=== PATIENT | female | born 1960 | race Caucasian/White ===

== ENCOUNTER 2017-07-09 21:45 | Inpatient (IN) | payer MEDICAID ==
[~2017-07-09] VITALS: Ht 154.9 cm; Wt 97.1 kg
[~2017-07-09 21:45] MED LIST: ABILIFY10 MG PO; AMARYL4 MG PO; ATHLETE'S FOOT60 GM TP; ATORVASTATIN CA40 MG PO; AZITHROMYCIN 2250 MG PO; DIFLUCAN150 M1 PO; IBUPROFEN 800800 M1 PO; IMITREX100 MG PO; INDERAL LA 80 M80 M1 PO; INVOKANA100 MG PO; IRON325 PO; LATUDA60 MG PO; METFORMIN HCL500 MG PO; NORCO 5-325 TA1 EACH PO; PAXIL10 MG PO; PHENERGAN 25 MG25 M1 PO; PREDNISONE 10 M10 MG PO; PROAIR HFA8.5 GM IH; PROZAC 20 MG20 MG PO; TOPAMAX 100 MG100 MG PO; TRAMADOL 50 MG50 MG PO; XANAX1 MG PO
[2017-07-09 21:53] VITALS: BP 132/59
[2017-07-09 22:12] LABS: HEMOGLOBIN 12.1 gm/dL (12.0-15.0); MPV 7.6 fl. (7.2-11.1); NUCLEATED RBCS 0 /100WBC; WBC 9.4 thou/uL (4.0-11.0)
[2017-07-09 22:20] LABS: HEMATOCRIT 35.7 % (37.0-47.0); MCH 31.1 pg (26.0-34.0); MCHC 33.9 g/dL (28.0-37.0); MCV 91.8 fL (80.0-100.0); PLATELET COUNT* 214 thou/uL (150-400); RBC 3.89 mil/uL (4.20-5.00); RDW-CV 13.4 % (10.5-14.5)
[2017-07-09 22:35] LABS: CALCIUM 8.6 mg/dL (8.5-10.1); CREATININE 1.1 mg/dL (0.6-1.3); POTASSIUM 3.7 mmol/L (3.5-5.1)
[2017-07-09 22:40] LABS: TOTAL BILIRUBIN 0.6 mg/dL (<0.1-1.0); TOTAL PROTEIN 7.4 g/dL (6.4-8.2)
[2017-07-09 22:46] LABS: ABSOLUTE EOSINOPHILS 0.1 thou/uL (0.0-0.7); ABSOLUTE LYMPHOCYTES 0.6 thou/uL (0.8-5.3); ABSOLUTE MONOCYTES 0.9 thou/uL (0.0-1.2); ABSOLUTE NEUTROPHILS 7.8 thou/uL (1.6-8.1); PLATELET ESTIMATE ADEQUATE
[2017-07-10 00:15] LABS: URINE BILIRUBIN NEGATIVE (Negative); URINE BLOOD TRACE (Negative); URINE CLARITY CLEAR; URINE COLOR STRAW; URINE GLUCOSE-RANDOM 3+ (Negative); URINE KETONES 1+ (Negative); URINE LEUKOCYTES-REFLEX TRACE (Negative); URINE NITRITE-REFLEX NEGATIVE (Negative); URINE PROTEIN NEGATIVE (Negative); URINE SPECIFIC GRAVITY <= 1.005 (1.005-1.030); URINE UROBILINOGEN 0.2 E.U./dl (0.2-1.0)
[2017-07-10 01:20] LABS: CASTS None Seen /LPF (None Seen); SQUAMOUS >10 Many /LPF (0-3)
[2017-07-10 01:21] LABS: CRYSTALS None Seen /LPF (None Seen); URINE RBC 0-2 Rare /HPF (0-2); URINE WBC-REFLEX 6-15 Few /HPF (0-5)
[2017-07-10 02:47] VITALS: BP 117/66
[2017-07-10 04:33] VITALS: BP 144/63
[2017-07-10 06:12] VITALS: BP 134/90
[2017-07-10 06:35] VITALS: BP 144/67
--- NOTE | 2017-07-10 08:12 | NUR ---
PATIENT ARRIVED FROM ER ALERT AND ORIENTED. V/S DONE AND TEMPATURE WAS ELEVATED. PAGED AND NOTIFIED AND NEW ORDERS NOTED.
[2017-07-10 16:15] VITALS: BP 125/81
--- NOTE | 2017-07-10 17:09 | NUR ---
ASSUMED CARE OF PATIENT AFTER MORNING REPORT. ALERT AND ORIENTED X4. ASSESSMENT COMPLETED AND CHARTED. VSS ON ROOM AIR. PATIENT APPEARED TO BE HAVING INCREASED WORK OF BRETHING THIS AM, 2 LITERS 02 WAS APPLIED. PATIENT ALSO HAD MARTIN FACE AND PUFFINESS AROUND THE EYES. REPORTED THESE FINDINGS TO THE DOCTOR. PRN BREATHING TREATMENTS WERE ORDERED AND PATIENT IS NOW ON ROOM AIR. BENADRYL WAS ORDERED AND GIVEN, REDNESS N HER FACE HAS SLIGHTLY IMPROVED. ANTIBIOTICS HAVE BEEN INFUSED ORDERED. PAIN HAS BEEN MANAGED WITH PAIN MEDICATION. PATIENT WAS FEBRILE THIS AM, ADMINISTERED TYLENOL AND FEVER WAS REDUCED. HOURLY ROUNDS HAVE BEEN MAINTAINED. CALL LIGHT IS WITHIN REACH. NURSING WILL CONTINUE TO MONITOR.
[2017-07-10 19:45] VITALS: BP 139/68
[2017-07-11] VITALS: BP 129/67
[2017-07-11 04:07] LABS: ABSOLUTE EOSINOPHILS 0.1 thou/uL (0.0-0.7); ABSOLUTE LYMPHOCYTES 0.7 thou/uL (0.8-5.3); ABSOLUTE MONOCYTES 0.7 thou/uL (0.0-1.2); BASOPHILS 0.5 %; EOSINOPHILS 1.2 %; HEMOGLOBIN 11.7 gm/dL (12.0-15.0); LYMPHOCYTES 10.3 %; MCH 30.5 pg (26.0-34.0); MCHC 33.3 g/dL (28.0-37.0); MCV 91.5 fL (80.0-100.0); MPV 7.4 fl. (7.2-11.1); NUCLEATED RBCS 0 /100WBC; PLATELET COUNT* 219 thou/uL (150-400); RBC 3.83 mil/uL (4.20-5.00); RDW-CV 13.4 % (10.5-14.5); WBC 6.5 thou/uL (4.0-11.0)
[2017-07-11 04:30] LABS: CALCIUM 8.3 mg/dL (8.5-10.1); CREATININE 0.7 mg/dL (0.6-1.3); POTASSIUM 3.8 mmol/L (3.5-5.1)
[2017-07-11 04:34] VITALS: BP 151/66
[2017-07-11 06:00] VITALS: BP 145/80
[2017-07-11 16:00] VITALS: BP 140/76
--- NOTE | 2017-07-11 17:01 | NUR ---
ALERT AND ORIENTED X4. UP AD ANSON IN ROOM. IV IS PATENT AND INFUSING. PAIN BEING MANAGED WITH PO PAIN MEDICATION. DENIES NAUSEA. TOLERATING DIET. VSS ON ROOM AIR. HOURLY ROUNDS HAVE BEEN MAINTAINED THORUGHOUT SHIFT. CALL LIGHT IS WITHIN REACH. NURSING WILL CONTINUE TO MONITOR.
[2017-07-11 20:00] VITALS: BP 179/94
[2017-07-12 05:08] LABS: ABSOLUTE LYMPHOCYTES 0.8 thou/uL (0.8-5.3); ABSOLUTE MONOCYTES 0.2 thou/uL (0.0-1.2); ABSOLUTE NEUTROPHILS 3.7 thou/uL (1.6-8.1); BASOPHILS 0.5 %; HEMATOCRIT 35.5 % (37.0-47.0); HEMOGLOBIN 11.8 gm/dL (12.0-15.0); LYMPHOCYTES 16.5 %; MCH 30.7 pg (26.0-34.0); MCHC 33.1 g/dL (28.0-37.0); MCV 92.6 fL (80.0-100.0); MPV 7.4 fl. (7.2-11.1); NUCLEATED RBCS 0 /100WBC; PLATELET COUNT* 260 thou/uL (150-400); RBC 3.83 mil/uL (4.20-5.00); RDW-CV 13.3 % (10.5-14.5); WBC 4.8 thou/uL (4.0-11.0)
[2017-07-12 05:11] LABS: CALCIUM 9.2 mg/dL (8.5-10.1); CREATININE 0.7 mg/dL (0.6-1.3)
--- NOTE | 2017-07-12 07:57 | NUR ---
PT ALERT AND ORIENTED X4, PT IN PLEASANT MOOD, UP AD ANSON, IV FLUIDS INFUSING, NO COMPLAINTS/CONCERNS EXPRESSED THIS SHIFT
--- NOTE | 2017-07-12 15:20 | NUR ---
PT.SITTING ON SIDE OF BED. ALERT AND ORIENTED. STATED SHE LIVES WITH HER EX . HER SON'S THAT ARE 21 AND 25 HELP THEM ALOT. SHE DOES NOT USE DME AND HAS NOT HAD HH. SHE WAS NOT INTERESTED IN ANY COMMUNITY RESOURCES. SHE SAID SHE CAN AFFORD HER MEDICATIONS THROUGH HER MEDICAID. SHE IS UNEMPLOYED. SHE SAID SHE IS INDEPENDENT WITH ALL THINGS.
--- NOTE | 2017-07-12 17:04 | NUR ---
ALERT AND ORIENTED X4. UP STAND BY ASSIST TO THE BATHROOM. IV IS PATENT AND INFUSING. PAIN BEING MANAGED WITH PO PAIN MEDICATION. DENIES NAUSEA. PATIENT HAD AN EPISODE OF DIZZINESS THIS EVENING AND FELL BACKWARDS ONTO HER BED. PROVIDER NOTIFED. NO COMPLAINTS OF DIZZINESS SINCE. BLOOD PRESSURE HAS BEEN HIGH THROUGHOUT SHIFT. PROVIDER NOTIFED AND ORDERS RECIEVED. AFEBRILE. ROOM AIR. HOURLY ROUNDS HAVE BEEN MAINTAINED THROUGHOUT SHIFT. CALL LIGHT IS WITHIN REACH. NURSING WILL CONTINUE TO MONITOR.
[2017-07-12 17:06] VITALS: BP 183/87
[2017-07-12 20:00] VITALS: BP 150/79
[2017-07-13 01:17] VITALS: BP 145/67
--- NOTE | 2017-07-13 04:25 | NUR ---
PATIENT ALERT AND ORIENTED X4. MEDICATED FOR PAIN X1 WITH GOOD EFFECT REPORTED. UP AD ANSON. ABX INFUSED ORDERED. TOLERATING DIET. DENIES NAUSEA THIS AM. VITALS STABLE. CONTINUE TO MONITOR.
[2017-07-13 05:09] LABS: ABSOLUTE LYMPHOCYTES 1.7 thou/uL (0.8-5.3); ABSOLUTE MONOCYTES 0.6 thou/uL (0.0-1.2); ABSOLUTE NEUTROPHILS 5.8 thou/uL (1.6-8.1); BASOPHILS 0.4 %; HEMATOCRIT 34.3 % (37.0-47.0); HEMOGLOBIN 11.4 gm/dL (12.0-15.0); LYMPHOCYTES 20.5 %; MCH 30.4 pg (26.0-34.0); MCHC 33.2 g/dL (28.0-37.0); MCV 91.5 fL (80.0-100.0); MONOCYTES 7.8 %; MPV 7.6 fl. (7.2-11.1); NUCLEATED RBCS 0 /100WBC; PLATELET COUNT* 313 thou/uL (150-400); POLYS 71.3 %; RBC 3.75 mil/uL (4.20-5.00); RDW-CV 13.4 % (10.5-14.5); WBC 8.2 thou/uL (4.0-11.0)
[2017-07-13 05:11] LABS: CALCIUM 9.1 mg/dL (8.5-10.1); CREATININE 0.7 mg/dL (0.6-1.3); POTASSIUM 4.2 mmol/L (3.5-5.1)
[2017-07-13 07:30] VITALS: BP 186/94
[2017-07-13 08:00] VITALS: BP 186/94
[2017-07-13 12:43] VITALS: BP 186/94
[2017-07-13] MEDS ORDERED: CIPRO500 MG PO (12:49)
[2017-07-13] MEDS ORDERED: NORCO 5-325 TA1 EACH PO (12:52)
[2017-07-13] MEDS ORDERED: PREDNISONE 20 M20 MG PO (13:07)
--- NOTE | 2017-07-13 13:30 | NUR ---
PATIENT LEFT UNIT BY WHEELCHAIR WITH NURSING STAFF. IV DC'D. EDUCATED PATIENT AND SONS ON DISCHARGE INSTRUCTIONS AND NEW MED SCRIPTS. PATIENT AND SONS VERBALIZED UNDERSTANDING. ALL BELONGINGS LEFT WITH PATIENTS.
[2017-07-13 13:32] VITALS: BP 186/94
--- NOTE | 2017-07-13 15:59 | NUR ---
I agree with student nurse, Miryam Lamar's, assessment and VS documentation
[2018-04-02] MEDS ORDERED: LATUDA60 MG PO (05:59)
== END 2017-07-13 13:33 | disposition home or self-care (01) | DRG 872 ==
LOC: M.ERS 21:45 → M.ORTHSURG 07-10 00:34 → M.TBA-ER 07-10 00:34 → M.ORTHSURG 07-10 06:33
PROVIDERS: Internal Medicine; Physician Assistant; ADMIT Family Medicine
DX: A41.9 Sepsis, unspecified organism (principal); N12 Tubulo-interstitial nephritis, not specified as acute or chronic; E87.1 Hypo-osmolality and hyponatremia; E24.9 Cushing's syndrome, unspecified; J45.909 Unspecified asthma, uncomplicated; F31.9 Bipolar disorder, unspecified; F17.210 Nicotine dependence, cigarettes, uncomplicated; N18.3 Chronic kidney disease, stage 3 (moderate); I12.9 Hypertensive chronic kidney disease with stage 1 through stage 4 chronic kidney disease, or unspecified chronic kidney disease; E11.22 Type 2 diabetes mellitus with diabetic chronic kidney disease; E78.5 Hyperlipidemia, unspecified; Z90.710 Acquired absence of both cervix and uterus; Z90.49 Acquired absence of other specified parts of digestive tract

== ENCOUNTER 2017-07-23 17:26 | Emergency (ER) | payer MEDICAID ==
[~2017-07-23] VITALS: Ht 154.9 cm; Wt 99.3 kg
[~2017-07-23 17:26] MED LIST changes: +CIPRO500 MG PO; +PREDNISONE 20 M20 MG PO
[2017-07-23 17:49] LABS: URINE BILIRUBIN NEGATIVE (Negative); URINE BLOOD NEGATIVE (Negative); URINE CLARITY CLEAR; URINE COLOR STRAW; URINE GLUCOSE-RANDOM 3+ (Negative); URINE KETONES NEGATIVE (Negative); URINE LEUKOCYTES-REFLEX TRACE (Negative); URINE NITRITE-REFLEX NEGATIVE (Negative); URINE PROTEIN NEGATIVE (Negative); URINE UROBILINOGEN 0.2 E.U./dl (0.2-1.0)
[2017-07-23 18:13] LABS: ABSOLUTE BASOPHILS 0.1 thou/uL (0.0-0.2); ABSOLUTE LYMPHOCYTES 1.7 thou/uL (0.8-5.3); ABSOLUTE MONOCYTES 0.6 thou/uL (0.0-1.2); ABSOLUTE NEUTROPHILS 7.1 thou/uL (1.6-8.1); BASOPHILS 1.2 %; EOSINOPHILS 0.5 %; HEMATOCRIT 39.3 % (37.0-47.0); HEMOGLOBIN 12.9 gm/dL (12.0-15.0); LYMPHOCYTES 18.1 %; MCH 30.8 pg (26.0-34.0); MCHC 32.9 g/dL (28.0-37.0); MCV 93.5 fL (80.0-100.0); MONOCYTES 6.4 %; MPV 7.4 fl. (7.2-11.1); NUCLEATED RBCS 0 /100WBC; PLATELET COUNT* 295 thou/uL (150-400); POLYS 73.8 %; RDW-CV 14.1 % (10.5-14.5); WBC 9.6 thou/uL (4.0-11.0)
[2017-07-23 18:23] LABS: SQUAMOUS >10 Many /LPF (0-3)
[2017-07-23 18:23] LABS: CALCIUM 8.3 mg/dL (8.5-10.1); CREATININE 0.9 mg/dL (0.6-1.3)
[2017-07-23 18:24] LABS: BACTERIA-REFLEX 1-9 Few /HPF (None Seen); CASTS None Seen /LPF (None Seen); CRYSTALS None Seen /LPF (None Seen); URINE RBC 0-2 Rare /HPF (0-2); URINE WBC-REFLEX 0-5 Rare /HPF (0-5)
[2017-07-23 18:25] LABS: YEAST-REFLEX Present (None Seen)
[2017-07-23 18:28] LABS: ALBUMIN 3.3 g/dL (3.4-5.0); TOTAL BILIRUBIN 0.3 mg/dL (<0.1-1.0); TOTAL PROTEIN 7.1 g/dL (6.4-8.2)
[2017-07-23] MEDS ORDERED: DIFLUCAN150 MG PO (20:13)
[2017-07-23 20:42] VITALS: BP 131/65
[2017-07-23] MEDS ORDERED: NORCO 5-325 TA1 EACH PO (20:48)
[2018-04-02] MEDS ORDERED: LATUDA60 MG PO (05:59)
== END 2017-07-23 20:43 | disposition home or self-care (01) ==
LOC: M.ERS 17:26
PROVIDERS: Nurse Practitioner Family
DX: B37.9 Candidiasis, unspecified (principal); R10.84 Generalized abdominal pain; M51.35 Other intervertebral disc degeneration, thoracolumbar region; I10 Essential (primary) hypertension; E11.9 Type 2 diabetes mellitus without complications; F17.200 Nicotine dependence, unspecified, uncomplicated; Z90.710 Acquired absence of both cervix and uterus; Z90.49 Acquired absence of other specified parts of digestive tract

== ENCOUNTER 2017-07-31 19:30 | Inpatient (IN) | payer MEDICAID ==
[~2017-07-31] VITALS: Ht 154.9 cm; Wt 97.1 kg
--- NOTE | ~2017-07-31 | PROC ---
[address] [address] PROCEDURE REPORT Name: ARIEL MORAN Room: [address] IN ..#: [id number] Admission: 07/31/17 Attend Phys: Fran Vargas MD Discharge: Date of : 62 Report #: [id number] THIS REPORT FOR: //name// For GI report, please see the Provation report in Perceptive 7 content. By: 0643Medical Records Staff [employer] /AMILCAR
[~2017-07-31 19:30] MED LIST changes: +DIFLUCAN150 MG PO
[2017-07-31 19:32] VITALS: BP 188/82
[2017-07-31 19:50] LABS: ABSOLUTE BASOPHILS 0.1 thou/uL (0.0-0.2); ABSOLUTE EOSINOPHILS 0.1 thou/uL (0.0-0.7); ABSOLUTE LYMPHOCYTES 1.8 thou/uL (0.8-5.3); ABSOLUTE MONOCYTES 0.6 thou/uL (0.0-1.2); ABSOLUTE NEUTROPHILS 6.5 thou/uL (1.6-8.1); BASOPHILS 1.4 %; EOSINOPHILS 0.7 %; HEMATOCRIT 41.3 % (37.0-47.0); HEMOGLOBIN 13.6 gm/dL (12.0-15.0); LYMPHOCYTES 19.8 %; MCH 30.9 pg (26.0-34.0); MCHC 32.9 g/dL (28.0-37.0); MCV 93.8 fL (80.0-100.0); MONOCYTES 6.4 %; MPV 7.1 fl. (7.2-11.1); NUCLEATED RBCS 0 /100WBC; PLATELET COUNT* 246 thou/uL (150-400); POLYS 71.7 %; RDW-CV 14.4 % (10.5-14.5)
[2017-07-31 20:01] LABS: ANION GAP 10 mmol/L (7-16); BUN 17 mg/dL (7-18); CALCIUM 9.1 mg/dL (8.5-10.1); CHLORIDE 101 mmol/L (98-107); CO2 28 mmol/L (21-32); CREATININE 1.2 mg/dL (0.6-1.3); GLUCOSE 251 mg/dL (70-99); POTASSIUM 4.7 mmol/L (3.5-5.1); SODIUM 139 mmol/L (136-145)
[2017-07-31 20:04] LABS: URINE BILIRUBIN NEGATIVE (Negative); URINE BLOOD NEGATIVE (Negative); URINE CLARITY CLEAR; URINE COLOR YELLOW; URINE GLUCOSE-RANDOM 3+ (Negative); URINE KETONES NEGATIVE (Negative); URINE LEUKOCYTES-REFLEX NEGATIVE (Negative); URINE NITRITE-REFLEX NEGATIVE (Negative); URINE PROTEIN NEGATIVE (Negative); URINE SPECIFIC GRAVITY <= 1.005 (1.005-1.030); URINE UROBILINOGEN 0.2 E.U./dl (0.2-1.0)
[2017-07-31 20:12] LABS: ALBUMIN 3.8 g/dL (3.4-5.0); ALKALINE PHOSPHATASE 222 U/L (46-116); NT-PRO BRAIN NAT PEPTIDE 79 pg/mL (<300); SGOT 51 U/L (15-37); SGPT 80 U/L (30-65); TOTAL BILIRUBIN 0.3 mg/dL (<0.1-1.0); TOTAL PROTEIN 7.8 g/dL (6.4-8.2); TROPONIN-I LEVEL <0.06 ng/mL (<0.06)
[2017-07-31 20:29] LABS: INR 1.1; PROTIME 10.5 Seconds (9.20-11.50)
[2017-07-31 22:31] VITALS: BP 109/56
[2017-07-31 23:45] VITALS: BP 125/56
--- NOTE | 2017-08-01 02:25 | NUR ---
PATIENT ADMITTED TO ROOM 106 AT APPROXIMATELY 2250. PATIENT IS ALERT AND ORIENTED X 4. VSS ON RA. PAIN MEDICATION GIVEN PRIOR TO COMING FROM ED. PATIENT ORIENTED TO ROOM AND POLICIES. FALL EDUCATION GIVEN AND FALL AGREEMENT SIGNED. PATIENT VERBALIZED UNDERSTANDING. IV FLUIDS STARTED. ADMISSION ROUTINES IN PROGRESS. ASSESSMENT CHARTED. PATIENT INSTRUCTED TO USE CALL LIGHT WHEN NEEDING ASSISTANCE. HOURLY ROUNDS TO BE MADE. WILL CONTINUE WITH PLAN OF CARE AND NURSING TO MONITOR.
--- NOTE | 2017-08-01 08:00 | NUR ---
PATIENT HAS BEEN UP MOST OF THE NIGHT. C/O EPIGASTRIC AREA PAIN. MEDICATIONS GIVEN ORDERED AND CHARTED. VSS ON RA. PATIENT REQUESTS MORPHINE EVERY 2 HRS. PATIENT HAS REMAINED NPO SINCE BEING ADMITTED. GI HAS BEEN CONSULTED. IV IN LEFT AC-NS @ 130ML/HR. PATIENT INSTRUCTED TO USE CALL LIGHT WHEN NEEDING ASSISTANCE. HOURLY ROUNDS MADE. WILL CONTINUE WITH PLAN OF CARE AND NURSING TO MONITOR.
[2017-08-01 08:10] VITALS: BP 124/73
--- NOTE | 2017-08-01 13:00 | NUR ---
PT.KNOWN FROM PREVIOUS ADMISSION. SHE LIVES WITH HER EX AND ADULT SONS. SHE IS INDEPENDENT AND NO HX OF DME OR HH. SHE WILL NOT HAVE ANY DISCHARGE NEEDS.
[2017-08-01 16:00] VITALS: BP 129/66
--- NOTE | 2017-08-01 16:17 | NUR ---
PATIENT REMAINS ALERT AND ORIENTED. EPIGASTIC PAIN CONTROLLED WITH MORPHINE/LIDODERM PATCH. IVF INFUSING AT 130ML/HR. PATIENT AMBULATES STANDBY ASSIST. CLEAR LIQUIDS STARTED. TOLERATING. STRESS TEST ORDERED TODAY. PATIENT CURRENTLY IN NUC MED FOR FIRST PART OF STUDY TODAY. PATIENT INSTRUCTED TO NOT CONSUME ANY CAFFEINE UNTIL FINAL PORTION OF STRESS TEST IS COMPLETED TOMORROW. WILL CONTINUE TO MONITOR.
--- NOTE | 2017-08-01 17:02 | EKG ---
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: TDM : 1960 Requested By: Gwendolyn Rojas Order Number: [id number] MD: Shar Conley Measurements Intervals [place] Rate: 82 P: 41 WA: 166 QRS: 63 QRSD: 80 T: -8 QT: 368 QTc: 430 Interpretive Statements Sinus rhythm Anteroseptal infarct, old Borderline T abnormalities, inferior leads Compared to ECG 06/13/2013 14:41:25 Myocardial infarct finding now present T-wave abnormality still present Electronically Signed On 08-01-2017 17:02:38 [employer]GR[employer] DIRECTOR by Shar Conley [email or web address] <ELECTRONICALLY SIGNED> By: Shar Conley MD, [facility] 08/01/17 1702 33 33 Shar Conley MD, [facility] /EPI
[2017-08-02 03:23] VITALS: BP 148/70
[2017-08-02 04:56] LABS: DIRECT BILIRUBIN 0.1 mg/dL (<0.1-0.3); TOTAL BILIRUBIN 0.4 mg/dL (<0.1-1.0); TOTAL PROTEIN 6.3 g/dL (6.4-8.2)
--- NOTE | 2017-08-02 06:48 | NUR ---
PATIENT HAS SLEPT WELL THROUGHOUT MOST OF THE NIGHT WITHOUT ANY ISSUES. PATIENT DID HAVE SMALL AMOUNT OF NAUSEA WITH EMESIS AT THE BEGINNING OF THE NIGHT. NAUSEA MEDICATION GIVEN AND CHARTED. PAIN HAS BEEN CONTROLLED THROUGHOUT THE NIGHT WITH IV PAIN MEDICATION. PATIENT IS UP WITH ASSIST X 1 TO THE BATHROOM. PATIENT HAS REMAINED NPO SINCE MIDNIGHT. VSS ON RA. IV IN LEFT AC-NS @ 130ML/HR. PATIENT INSTRUCTED TO USE CALL LIGHT WHEN NEEDING ASSISTANCE. HOURLY ROUNDS MADE. WILL CONTINUE WITH PLAN OF CARE AND NURSING TO MONITOR.
--- NOTE | 2017-08-02 06:53 | NUR ---
PATIENT HAS SLEPT WELL THROUGHOUT THE NIGHT WITHOUT ANY ISSUES. PAIN WELL CONTROLLED WITH ORAL PAIN MEDICATIONS. VSS ON RA. PATIENT VOIDING ADEQUATELY. PATIENT IS UP AD-ANSON WITH WALKER AND STEADY. PATIENT INSTRUCTED TO USE CALL LIGHT WHEN NEEDING ASSISTANCE. HOURLY ROUNDS MADE. WILL CONTINUE WITH PLAN OF CARE AND NURSING TO MONITOR.
[2017-08-02 08:00] VITALS: BP 118/64
[2017-08-02 10:10] LABS: HEPATITIS B SURFACE AG Negative (Negative)
[2017-08-02] MEDS ORDERED: NORCO 5-325 TA1 EACH PO (15:16)
[2017-08-02] MEDS ORDERED: PROTONIX40 M1 PO (15:16)
--- NOTE | 2017-08-02 15:18 | CARDNUC ---
[place] [address] CARDIAC NUCLEAR IMAGING REPORT Name: ARIEL MORAN Room: [address] IN [facility]#: [id number] Admission: 07/31/17 Attend Phys: Fran Vargas, Discharge: Date of : 62 Date of Service: 08/02/17 1517 Report #: [id number] THIS REPORT FOR: //name// APPROVED REPORT Exam: Nuclear Stress Test Indication: Chest pain Patient Location: In-Patient Room #: 106 Stress Tech: Maddie Shell Stress Nurse: Yenifer Meza RN NM Tech:GEORGINA Shi Ht: 5 ft 1 in Wt: 214 lbs BSA: 1.94 m2 BMI: 40.43 Medical History Medical History: Diabetes, HTN, Hyperlipidemia, Smoking Medications: no cardiac meds Allergies: No known drug allergies Cardiac Risk Factors: Age, DM, FHX of CAD, HTN, Hyperlipidemia, Smoking Exercise History: Sedentary Meds Held (24 hrs): - Stress Test Details Stress Test: Pharmacologic stress testing performed using 0.4 mg of regadenoson per 5 mL given IV over 10 seconds. Reason for pharmacologic stress test: physical limitation. HR Resting HR: 79 bpm Max Heart Rate (APMHR): 164 bpm Max HR Achieved: 121 bpm Target HR (85% APMHR): 139 bpm % of APMHR: 73 Recovery HR: 92 bpm HR response to stress: Normal HR response to stress BP Resting BP: 196/82 mmHg Max BP: 223/75 mmHg BP response to stress: Normal blood pressure response to stress. ECG Resting ECG: [place] [address] CARDIAC NUCLEAR IMAGING REPORT Name: ARIEL MORAN Room: [address]#: [id number] Admission: 07/31/17 Attend Phys: Fran Vargas, Discharge: Date of : 62 Date of Service: 08/02/17 1517 Report #: [id number] Stress ECG: Sinus Rhythm ST Change: Nondiagnostic ST abnormalities Recovery ECG: Sinus Rhythm Recovery ST Change: None Clinical Reason for Termination: Completed protocol Stress Symptoms: Nausea Exercise duration: 0 min sec Exercise capacity: 1.0 METs Nurse Comments Patient c/o of nausea post lexiscan injection, resolved in recovery. NM EXAM: Myocardial Perfusion REST/STRESS Imaging Protocol: Rest Tc-99m/Stress Tc-99m 2 days Resting Data Rest SPECT myocardial perfusion imaging was performed in supine position 30 minutes following the intravenous injection of 28.0 mCi of Tc-99m Sestamibi. Time of rest injection: 1415 Date: 08/01/2017 Time of rest imagin The images were gated to evaluate regional wall motion and calculate left ventricular ejection fraction. Administration Route: IV Pharmacologic Stress Pharmacologic stress test was performed by injecting Regadenoson 0.4 mg IV push followed by the intravenous injection of 39.3 mCi of Tc-99m Sestamibi. Time of stress injection: 1140 Date: 08/02/2017 Time of stress imagin Administration Route: IV Gated Stress SPECT was performed 40 minutes after stress injection. The images were gated to evaluate regional wall motion and calculate left ventricular ejection fraction. Stress only was performed in the Supine position. Study Quality Study: Good Artifact: Mild Breast artifact Lung Uptake: [place] [address] CARDIAC NUCLEAR IMAGING REPORT Name: SHILOHARIEL CULLEN Bolivar Room: [address] IN [facility]#: [id number] Admission: 07/31/17 Attend Phys: Fran Vargas, Discharge: Date of : 62 Date of Service: 08/02/17 1517 Report #: [id number] Study Data At rest, the left ventricular ejection fraction was 65%.. Post stress, the left ventricular ejection was 73%.. SSS: 7 SRS: 3 SDS: 4 TID = 1.14. Perfusion There is a mostly fixed mild intensity apical defect which is small in size, otherwise normal perfusion, this is likely artifact. No reversibel defects are seen. Images were reviewed using Vaprema. Wall Motion normal all segments Nuclear Conclusion ECG Findings: non-diagnostic Clinical Findings: negative for ischemia Nuclear Findings: negative for ischemia Exercise Capacity: normal Left Ventricular Function: normal Risk Study: low Normal perfusion nuclear stress test. <ELECTRONICALLY SIGNED> By: Jesse Shafer MD, FACC 08/02/17 1517 1517 151 Jesse Shafer MD, FACC /INF
--- NOTE | 2017-08-02 16:29 | NUR ---
PATIENT REMAINS ALERT AND ORIENTED. DR. AGUIAR CALLED STATING STRESS TEST WAS NORMAL. DR. BURKETT WROTE DISCHARGE ORDERS. GI PAGED TO CONFIRM THEY ARE OK WITH DISCHARGE ORDERS. THEN PATIENT VOMITED SHORTLY AFTER ROUNDED. GI ROUNDING AND INFORMED OF EMESIS. CALL LIGHT WITHIN REACH. WILL CONTINUE TO MONITOR.
--- NOTE | 2017-08-02 17:21 | NUR ---
INFORMED OF EGD TOMORROW, AND HOLD ON DISCHARGE. MORPHINE GIVEN, SCOP PATCH PLACED AND PATIENT INFORMED OF NPO AFTER 0600.
[2017-08-02 19:55] VITALS: BP 181/90
[2017-08-03 01:30] VITALS: BP 173/96
[2017-08-03 04:18] VITALS: BP 164/93
[2017-08-03 04:25] LABS: HEMATOCRIT 38.2 % (37.0-47.0); HEMOGLOBIN 12.6 gm/dL (12.0-15.0); MCH 30.5 pg (26.0-34.0); MCHC 33.1 g/dL (28.0-37.0); MCV 92.3 fL (80.0-100.0); MPV 7.3 fl. (7.2-11.1); RBC 4.14 mil/uL (4.20-5.00); RDW-CV 14.6 % (10.5-14.5); WBC 5.3 thou/uL (4.0-11.0)
--- NOTE | 2017-08-03 04:35 | NUR ---
PATIENT ALERT AND ORIENTED. PHYSICIAN NOTIFIED DUE TO ELEVATED BLOOD PRESSURE. ORDERS RECEIVED. RA. UP INDEPENDENTLY IN ROOM. PATIENT REPORTS VOMITTING X 1. EMESIS CLEAR IN COLOR UNABLE TO MEASURE BECAUSE PATIENT VOMITTED IN TRASH CAN. APPEARED TO BE SMALL AMOUNT. ZOFRAN GIVEN X 2. MORPHINE GIVEN FOR PAIN, PARTIALLY EFFECTIVE. STATES THAT SHE IS NOT TOLERATING CLEAR LIQUID DIET. EGD SCHEDULED TODAY. HOURLY ROUNDS. INSTRUCTED TO CALL FOR ASSISTANCE. NURSING WILL CONTINUE TO MONITOR.
[2017-08-03 04:49] LABS: ALBUMIN 3.4 g/dL (3.4-5.0); CALCIUM 8.4 mg/dL (8.5-10.1); CREATININE 0.6 mg/dL (0.6-1.3); POTASSIUM 3.7 mmol/L (3.5-5.1); TOTAL BILIRUBIN 0.6 mg/dL (<0.1-1.0); TOTAL PROTEIN 6.8 g/dL (6.4-8.2)
[2017-08-03 07:55] VITALS: BP 155/82
[2017-08-03 11:06] VITALS: BP 155/82
--- NOTE | 2017-08-03 11:23 | NUR ---
PATIENT GOING TO PACU FOR EGD AT THIS TIME
[2017-08-03 11:40] VITALS: BP 165/91
--- NOTE | 2017-08-03 13:27 | NUR ---
Nutrition: Pt assessed for DX of pancreatitis - non-severe. Pt has chronic hepatitis, chronic opiate use, chronic steroid use, HTN. BG 161, LFTs WNL, alb 3.4. NPO currently for EGD. Pt had some emesis. On insulin. Wt: 214#. No nutrition interventions needed at this time. GOAL: advance diet to Low Fat once pt is clinically able. Mild risk.
--- NOTE | 2017-08-03 14:53 | NUR ---
PATIENT RETURNED FROM EGD AT THIS TIME. HEART HEALTHY DIET ORDERED. PATIENT WILL BE NPO AFTER MIDNIGHT FOR GASTRIC EMPTYING. WILL CONTINUE TO MONITOR.
[2017-08-03 15:36] VITALS: BP 191/84
--- NOTE | 2017-08-03 16:17 | NUR ---
PATIENT REMAINS ALERT AND ORIENTED. REQUESTING MORPHINE EVERY 2 HOURS FOR ABDOMINAL PAIN. SCOP PATCH AND ZOFRAN FOR NAUSEA. DRINKING LIQUIDS. HEART HEALTHY REQUESTED FOR DINNER. IVF INFUSING AT 130ML/HR. HYDRALAZINE GIVEN FOR HTN. PATIENT WILL BE NPO AFTER MIDNIGHT FOR GASTRIC EMPTYING TOMORROW. CALL LIGHT WITHIN REACH. WILL CONTINUE TO MONITOR.
--- NOTE | 2017-08-03 17:00 | NUR ---
PATIENT COMPLAINING OF RED, SWOLLEN FACE. DR. BURKETT NOTIFIED.
[2017-08-04 00:32] VITALS: BP 124/74
[2017-08-04 06:26] LABS: HEMOGLOBIN 12.7 gm/dL (12.0-15.0); MCHC 33.5 g/dL (28.0-37.0); MCV 92.4 fL (80.0-100.0); MPV 7.4 fl. (7.2-11.1); RBC 4.11 mil/uL (4.20-5.00); RDW-CV 14.6 % (10.5-14.5); WBC 4.9 thou/uL (4.0-11.0)
[2017-08-04 06:36] LABS: ALBUMIN 3.3 g/dL (3.4-5.0); CALCIUM 8.3 mg/dL (8.5-10.1); CREATININE 0.6 mg/dL (0.6-1.3); POTASSIUM 3.6 mmol/L (3.5-5.1); TOTAL BILIRUBIN 0.6 mg/dL (<0.1-1.0); TOTAL PROTEIN 6.7 g/dL (6.4-8.2)
[2017-08-04 08:00] VITALS: BP 155/79
--- NOTE | 2017-08-04 11:09 | S ---
[place] [address] SURGICAL PATH RPT PROCEDURE Name: LALITHAARIEL A Room: [address] IN [facility]#: [id number] Admission: 07/31/17 Date of : 62 Discharge: Report #: [id number] Path Case #: [id number] PATHOLOGY REPORT COLLECTION DATE: 08/03/2017 RECEIVED DATE: 08/03/2017 SUBMITTING PHYS: Dr. Irene Church OTHER PHYS: Dr. Fran Vargas SPECIMEN(S) RECEIVED: A.Gastric bx * * * * * * * * * * * * FINAL DIAGNOSIS: Gastric biopsy: - Mild chronic gastritis, suggesting reactive gastropathy (chemical gastritis), negative for Helicobacter pylori organisms and dysplasia. (JOSE JUAN:[facility]; 08/04/2017) PATHOLOGIST: Farshad Villavicencio M.D. REPORT ELECTRONICALLY SIGNED BY: Farshad Villavicencio M.D. DATE/TIME: 08/04/2017 11:08 * * * * * * * * * * * * GROSS PATHOLOGY: Received in formalin labeled "Ariel Chatterjeekarrie, gastric biopsy, rule out H. pylori," are 2 segments of frias soft tissue measuring 1.2 x 0.4 x 0.3 cm in aggregate dimensions and ranging from 0.4 to 0.6 cm in maximum dimension. The specimen is submitted entirely in cassette A1. CLINICAL HISTORY: Rule out H. pylori. INITIAL CPT CODE(S): A; 22786, 55743 Professional services performed by [facility] at [facility], [address] [place] [address]. Technical services performed by [facility] at [address] [place] [address], [address], [place] [address]. [facility] [id number] [place] [address] SURGICAL PATH RPT PROCEDURE Name: ARIEL MORAN Room: [address] IN ..#: [id number] Admission: 07/31/17 Date of : 62 Discharge: Report #: [id number] Path Case #: [id number] PHONE: [phone] DIRECTOR: Gary Serrano M.D. * * * END OF REPORT * * *
[2017-08-04] MEDS ORDERED: NEXIUM40 MG PO (14:42)
[2017-08-04 15:42] VITALS: BP 155/79
[2017-08-04] MEDS ORDERED: BENADRYL25 MG PO (16:15)
[2017-08-04 16:30] VITALS: BP 155/79
--- NOTE | 2017-08-04 17:18 | NUR ---
I ASSUMED CARE OF THE PATIENT AT 0700. SHE IS ALERT AND ORIENTED X4. BED IS IN THE LOW LOCKED POSITION. HOURLY ROUNDING WAS COMPLETED AND PATIENT NEEDS WERE MET. MEDS WERE HELD UNTIL AFTER GASTRIC EMPTYING TEST WAS COMPLETED. GI IS OKAY WITH D/C IF TEST RESULTS ARE NEGATIVE/NORMAL. SHE IS UP AD ANSON AND IS AT THE BEDSIDE. PROTONIX WAS GIVEN AT DISCHARGE. SCRIPTS WERE GIVEN AND DISCHARGE WAS UNDERSTOOD. PATIENT WAS WALKED OUT AT 1630.
[2017-08-04 18:07] LABS: GLYCOHEMOGLOBIN (HGB A1C) 6.8 % (4.8-5.6)
--- NOTE | 2017-08-04 20:36 | NUR ---
[facility] CALLED. THEY WANTED TO INFORM US THAT SINCE 05/18/17, THE PATIENT HAS HAD 8 SCRIPTS FILLED BY 8 DIFFERENT PROVIDERS BETWEEN [facility]ICAL [facility] AND ED DOCTORS FOR CONTROLLED SUBSTANCES. THEY WANTED TO KNOW IF DR BURKETT WANTED TO KEEP HIS SCRIPT OR ALLOW IT TO BE FILLED. I REACHED OUT TO DR BURKETT AND DR RUIZ RESPONDED THE UPPER LINING CEMENTER PHYSICIAN. HE DID NOT WANT TO SPEAK ON DR BURKETT'S ACCOUNT AND SAID THAT THE SCRIPT COULD BE CANCELED. PATIENT THEN CALLED ANGRY THAT THE PHARMACY WOULDN'T FILL HER SCRIPT OR RETURN IT TO HER. THE PHARMACIST SAID THAT THEY WOULD NOT FILL THE SCRIPT BECAUSE OF THE ACTIVITY ON THE PATIENT'S ACCOUNT.
--- NOTE | 2017-08-11 14:50 | CON ---
[address] [address] CONSULTATION Name: ARIEL MORAN Room: [address] IN .R.#: [id number] Admission: 07/31/17 Attend Phys: Fran Vargas MD Discharge: 08/04/17 Date of : 62 Report #: [id number] THIS REPORT FOR: //name// CC: FAM physician/PCP Fran Vargas DATE OF SERVICE: 08/01/2017 ADDENDUM TO CONSULTATION CONSULT NUMBER: [id number]. This is a 57-year-old female with history of colonoscopy 3 years ago, which was significant for polyps. The patient complains of generalized abdominal pain and presented to hospital with chest pain. She has had nuclear scan today and will have a stress test tomorrow. Meanwhile, we have recognized her LFTs being elevated with alkaline phosphatase above 250. Ultrasound also was obtained, which showed dilated common bile duct of 10 mm. We will go ahead and consider MRCP as she has had a laparoscopic cholecystectomy more than 30 years ago. If her MRCP is negative, we will consider EGD. The patient is agreeable to the plan. <ELECTRONICALLY SIGNED> By: Irene Church MD 08/11/17 1450 1651 2001Irene Church MD /nt
--- NOTE | 2017-08-11 14:50 | CON ---
[address] [address] CONSULTATION Name: ARIEL MORAN Room: [address] IN .R.#: [id number] Admission: 07/31/17 Attend Phys: Fran Vargas MD Discharge: 08/04/17 Date of : 62 Report #: [id number] THIS REPORT FOR: //name// CC: [facility] physician/PCP Fran Christian DICTATED BY: Cony Marks [facility] DATE OF SERVICE: 08/01/2017 Please note at the time of this dictation, the patient was seen and physically examined by myself. REASON FOR CONSULTATION: Elevated lipase. HISTORY OF PRESENT ILLNESS: This 56-year-old female who presented to the Emergency Room with having ongoing chest discomfort, which started yesterday morning. She complained of pain in her chest radiating to her shoulder and her lower back. She denies any recent URI symptoms with all this. She denies any vomiting or abdominal pain. She did have a slight nausea, though at that time. The patient does have a recent history of a UTI in which she was treated with Augmentin in the past. Otherwise, she states that she cannot recall if she has had any upper or lower endoscopy studies done at this time. ALLERGIES: No known drug allergies. MEDICATIONS FROM HOME: Include Prozac, Inderal, Xanax, Lipitor, Latuda, Topamax, iron, Invokana, Amaryl, Glucophage, Ultram and prednisone. PAST MEDICAL HISTORY: Hypertension, diabetic. PAST SURGICAL HISTORY: Hysterectomy, cholecystectomy and knee surgery. FAMILY HISTORY: Negative for any GI or female cancers. SOCIAL HISTORY: She does drink on special occasions and smokes 1 pack per day. REVIEW OF SYSTEMS: Twelve-point review of systems is essentially negative except what is mentioned in the HPI. PHYSICAL EXAMINATION: VITAL SIGNS: Temperature 36.4, pulse 73, respirations 18, blood pressure 124/73. HEART: Regular rate and rhythm. LUNGS: [place] [address] CONSULTATION Name: ARIEL MORAN Room: [address]#: [id number] Admission: 07/31/17 Attend Phys: Fran Vargas MD Discharge: 08/04/17 Date of : 62 Report #: [id number] ABDOMEN: Positive bowel sounds in all 4 quadrants with no masses or tenderness noted at this time. LABORATORY DATA: Hemoglobin 13.6, hematocrit 41.3, white count is 9, platelets 246. PT 10.5, INR is 1.1. Sodium 136, potassium 4.7, chloride 101, CO2 of 28, BUN is 17, creatinine 1.7 and have remained at roughly the same throughout the course of this hospitalization. Total bilirubin is 0.3, alkaline phosphatase is 222, ALT 80 and AST of 51. Her lipase is only 394. CT done on 07/23 showed enlarged lobulated liver, but no pancreatic stranding was noted. IMPRESSION: 1. Elevated LFTs. 2. Nausea. 3. Recent urinary tract infection with antibiotic use, but unclear as to which one, which could be a contributing factor for her abdominal discomfort. PLAN: 1. Ultrasound of the abdomen is pending. Depending on the outcome of that whether or not she can have an MRCP. 2. Labs; acute hepatitis panel, CMP and ESR. Thank you for allowing us to participate in this patient's care. Please do not hesitate to call with any questions in regard to this consult. This is a 57-year-old female with history of colonoscopy 3 years ago, which was significant for polyps. The patient complains of generalized abdominal pain and presented to hospital with chest pain. She has had nuclear scan today and will have a stress test tomorrow. Meanwhile, we have recognized her LFTs being elevated with alkaline phosphatase above 250. Ultrasound also was obtained, which showed dilated common bile duct of 10 mm. We will go ahead and consider MRCP as she has had a laparoscopic cholecystectomy more than 30 years ago. If her MRCP is negative, we will consider EGD. The patient is agreeable to the plan. <ELECTRONICALLY SIGNED> By: Irene Church MD 08/11/17 1450 1244 [id number] Church MD /nt
[2018-04-02] MEDS ORDERED: LATUDA60 MG PO (05:59)
== END 2017-08-04 16:30 | disposition home or self-care (01) | DRG 391 ==
LOC: M.ERS 19:30 → M.ORTHSURG 20:32 → M.TBA-ER 20:32 → M.ORTHSURG 22:34
PROVIDERS: Emergency Medicine; Internal Medicine Gastroenterology; Nurse Practitioner Adult Health; ADMIT Internal Medicine
PROC: 0DB68ZX Excision of Stomach, Via Natural or Artificial Opening Endoscopic, Diagnostic (ICD-10-PCS; principal; 2017-08-03)
DX: K29.70 Gastritis, unspecified, without bleeding (principal); K85.90 Acute pancreatitis without necrosis or infection, unspecified; I10 Essential (primary) hypertension; E11.9 Type 2 diabetes mellitus without complications; F17.210 Nicotine dependence, cigarettes, uncomplicated; J44.9 Chronic obstructive pulmonary disease, unspecified; K75.9 Inflammatory liver disease, unspecified; E78.5 Hyperlipidemia, unspecified; K21.0 Gastro-esophageal reflux disease with esophagitis; K44.9 Diaphragmatic hernia without obstruction or gangrene; Z90.710 Acquired absence of both cervix and uterus; Z90.49 Acquired absence of other specified parts of digestive tract; Z79.899 Other long term (current) drug therapy

== ENCOUNTER 2017-08-25 10:07 | Emergency (ER) | payer MEDICAID ==
[~2017-08-25] VITALS: Ht 154.9 cm; Wt 96.6 kg
[~2017-08-25 10:07] MED LIST changes: +BENADRYL25 MG PO; +NEXIUM40 MG PO; +PROTONIX40 M1 PO
[2017-08-25 10:44] LABS: URINE BILIRUBIN NEGATIVE (Negative); URINE BLOOD NEGATIVE (Negative); URINE CLARITY CLEAR; URINE COLOR YELLOW; URINE GLUCOSE-RANDOM 2+ (Negative); URINE KETONES NEGATIVE (Negative); URINE LEUKOCYTES-REFLEX NEGATIVE (Negative); URINE NITRITE-REFLEX NEGATIVE (Negative); URINE PROTEIN NEGATIVE (Negative); URINE SPECIFIC GRAVITY <= 1.005 (1.005-1.030); URINE UROBILINOGEN 0.2 E.U./dl (0.2-1.0)
[2017-08-25] MEDS ORDERED: TRAMADOL 50 MG50 MG PO (10:56)
[2017-08-25 11:29] VITALS: BP 139/77
[2018-04-02] MEDS ORDERED: LATUDA60 MG PO (05:59)
== END 2017-08-25 11:30 | disposition home or self-care (01) ==
LOC: M.ERS 10:07
PROVIDERS: Nurse Practitioner Family
DX: M25.562 Pain in left knee (principal); R10.9 Unspecified abdominal pain; F17.210 Nicotine dependence, cigarettes, uncomplicated

== ENCOUNTER → 2017-09-01 | Outpatient (CLI) | payer MEDICAID ==
[~2017-09-01] MED LIST changes: +ACETAMINOPHEN-1 EAC1 PO; +AMOXICILLIN 50500 MG; +ASPIR 8181 MG PO; +BACTRIM DS TAB1 EACH PO; +DOXYCYCLINE 10100 MG; +FLEXERIL; +FLEXERIL PO; +GABAPENTIN 100100 MG PO; +JANUVIA100 MG PO; +KEFLEX500 M1; +KEFLEX500 M1 PO; +LISINOPRIL10 MG PO; +LYRICA 50 MG50 MG; +MACROBID 100 M100 M2 PO; +PROBIOTIC1 EAC2 PO; +TRAMADOL 50 MG50 MG; +VITAMIN D400 UNIT PO; +ZANAFLEX2 MG PO; +ZOFRAN4 MG PO; +ZYRTEC10 M5 PO
== END ==
LOC: M.RAD 14:05
DX: Z12.31 Encounter for screening mammogram for malignant neoplasm of breast (principal)

== ENCOUNTER 2017-10-31 13:26 | Emergency (ER) | payer MEDICAID ==
[~2017-10-31] VITALS: Ht 154.9 cm; Wt 96.6 kg
[~2017-10-31 13:26] MED LIST changes: -ACETAMINOPHEN-1 EAC1 PO; -AMOXICILLIN 50500 MG; -ASPIR 8181 MG PO; -BACTRIM DS TAB1 EACH PO; -DOXYCYCLINE 10100 MG; -FLEXERIL; -FLEXERIL PO; -GABAPENTIN 100100 MG PO; -JANUVIA100 MG PO; -KEFLEX500 M1; -KEFLEX500 M1 PO; -LISINOPRIL10 MG PO; -LYRICA 50 MG50 MG; -MACROBID 100 M100 M2 PO; -PROBIOTIC1 EAC2 PO; -TRAMADOL 50 MG50 MG; -VITAMIN D400 UNIT PO; -ZANAFLEX2 MG PO; -ZOFRAN4 MG PO; -ZYRTEC10 M5 PO
[2017-10-31] MEDS ORDERED: GABAPENTIN 100100 MG PO (13:33)
[2017-10-31] MEDS ORDERED: ZANAFLEX2 MG PO (13:33)
[2017-10-31 13:45] LABS: URINE BILIRUBIN NEGATIVE (Negative); URINE BLOOD NEGATIVE (Negative); URINE CLARITY CLEAR; URINE COLOR STRAW; URINE GLUCOSE-RANDOM 2+ (Negative); URINE KETONES NEGATIVE (Negative); URINE LEUKOCYTES-REFLEX 1+ (Negative); URINE NITRITE-REFLEX NEGATIVE (Negative); URINE PROTEIN NEGATIVE (Negative); URINE SPECIFIC GRAVITY <= 1.005 (1.005-1.030); URINE UROBILINOGEN 0.2 E.U./dl (0.2-1.0)
[2017-10-31 13:55] LABS: SQUAMOUS >10 Many /LPF (0-3); YEAST-REFLEX Present (None Seen)
[2017-10-31 13:56] LABS: BACTERIA-REFLEX 1-9 Few /HPF (None Seen); CASTS None Seen /LPF (None Seen); CRYSTALS None Seen /LPF (None Seen); URINE RBC 0-2 Rare /HPF (0-2); URINE WBC-REFLEX 0-5 Rare /HPF (0-5)
[2017-10-31 14:04] LABS: ABSOLUTE BASOPHILS 0.1 thou/uL (0.0-0.2); ABSOLUTE EOSINOPHILS 0.1 thou/uL (0.0-0.7); ABSOLUTE LYMPHOCYTES 1.4 thou/uL (0.8-5.3); ABSOLUTE MONOCYTES 0.4 thou/uL (0.0-1.2); ABSOLUTE NEUTROPHILS 6.7 thou/uL (1.6-8.1); BASOPHILS 1.3 %; EOSINOPHILS 1.2 %; HEMATOCRIT 43.8 % (37.0-47.0); HEMOGLOBIN 14.3 gm/dL (12.0-15.0); LYMPHOCYTES 15.8 %; MCH 29.2 pg (26.0-34.0); MCHC 32.7 g/dL (28.0-37.0); MCV 89.1 fL (80.0-100.0); MONOCYTES 4.9 %; MPV 7.8 fl. (7.2-11.1); NUCLEATED RBCS 0 /100WBC; PLATELET COUNT* 223 thou/uL (150-400); POLYS 76.8 %; RBC 4.92 mil/uL (4.20-5.00); RDW-CV 13.9 % (10.5-14.5); WBC 8.7 thou/uL (4.0-11.0)
[2017-10-31 14:12] LABS: ANION GAP 10 mmol/L (7-16); BUN 8 mg/dL (7-18); CALCIUM 9.7 mg/dL (8.5-10.1); CHLORIDE 103 mmol/L (98-107); CO2 26 mmol/L (21-32); CREATININE 0.9 mg/dL (0.6-1.3); GLUCOSE 137 mg/dL (70-99); POTASSIUM 4.2 mmol/L (3.5-5.1); SODIUM 139 mmol/L (136-145)
[2017-10-31 14:18] LABS: ALBUMIN 3.9 g/dL (3.4-5.0); ALKALINE PHOSPHATASE 298 U/L (46-116); SGOT 24 U/L (15-37); SGPT 32 U/L (30-65); TOTAL BILIRUBIN 0.4 mg/dL (<0.1-1.0); TOTAL PROTEIN 8.1 g/dL (6.4-8.2); TROPONIN-I LEVEL <0.06 ng/mL (<0.06)
[2017-10-31] MEDS ORDERED: PHENERGAN 25 MG25 M1 PO (17:06)
[2017-10-31] MEDS ORDERED: BACTRIM DS TAB1 EACH PO (17:06)
[2017-10-31] MEDS ORDERED: DIFLUCAN150 MG PO (17:06)
[2017-10-31] MEDS ORDERED: TRAMADOL 50 MG50 MG PO (17:07)
[2017-10-31 17:20] VITALS: BP 188/79
--- NOTE | 2017-11-01 09:49 | EKG ---
[place] [address] ELECTROCARDIOGRAM REPORT Name: ARIEL MORAN Room: [facility]#: [id number] Admission: 10/31/17 Attend Phys: Discharge: 10/31/17 Date of : 62 Report #: [id number] THIS REPORT FOR: //name// [facility] ED Test Date: 2017-10-31 Test Time: 13:49:59 Pat Name: ARIEL MORAN Department: Room: Gender: F Patient Registration Specialist: : 1960 Requested By: An Diaz Order Number: [id number] MD: Hernando Valentine Measurements Intervals [place] Rate: 72 P: 70 ND: 148 QRS: 61 QRSD: 91 T: 6 QT: 389 QTc: 426 Interpretive Statements Sinus rhythm Biatrial enlargement Borderline repolarization abnormality Compared to ECG 07/31/2017 19:34:41 Atrial abnormality now present Electronically Signed On 11-01-2017 9:49:49 CDT by Hernando Valentine [email or web address] <ELECTRONICALLY SIGNED> By: Hernando Valentine MD, [facility] 11/01/17 0949 1349 1349 Hernando Valentine MD, [facility] /EPI
[2018-04-02] MEDS ORDERED: LATUDA60 MG PO (05:59)
== END 2017-10-31 17:32 | disposition home or self-care (01) ==
LOC: M.ERS 13:26
PROVIDERS: Nurse Practitioner Family
DX: N30.90 Cystitis, unspecified without hematuria (principal); B37.9 Candidiasis, unspecified; R11.0 Nausea; I10 Essential (primary) hypertension; E11.9 Type 2 diabetes mellitus without complications; F17.210 Nicotine dependence, cigarettes, uncomplicated; Z90.49 Acquired absence of other specified parts of digestive tract; Z90.710 Acquired absence of both cervix and uterus

== ENCOUNTER 2018-01-22 18:04 | Inpatient (IN) | payer MEDICAID ==
[~2018-01-22] VITALS: Ht 154.9 cm; Wt 94.8 kg
[~2018-01-22 18:04] MED LIST changes: +BACTRIM DS TAB1 EACH PO; +GABAPENTIN 100100 MG PO; +ZANAFLEX2 MG PO
[2018-01-22 18:10] VITALS: BP 192/105
[2018-01-22] MEDS ORDERED: JANUVIA100 MG PO (18:26)
[2018-01-22] MEDS ORDERED: PROBIOTIC1 EAC2 PO (18:27)
[2018-01-22] MEDS ORDERED: VITAMIN D400 UNIT PO (18:27)
[2018-01-22 18:45] LABS: URINE BILIRUBIN NEGATIVE (Negative); URINE BLOOD NEGATIVE (Negative); URINE CLARITY CLEAR; URINE COLOR YELLOW; URINE GLUCOSE-RANDOM NEGATIVE (Negative); URINE KETONES NEGATIVE (Negative); URINE LEUKOCYTES-REFLEX NEGATIVE (Negative); URINE NITRITE-REFLEX NEGATIVE (Negative); URINE PROTEIN NEGATIVE (Negative); URINE SPECIFIC GRAVITY <= 1.005 (1.005-1.030); URINE UROBILINOGEN 0.2 E.U./dl (0.2-1.0)
[2018-01-22 18:46] LABS: ABSOLUTE BASOPHILS 0.1 thou/uL (0.0-0.2); ABSOLUTE EOSINOPHILS 0.1 thou/uL (0.0-0.7); ABSOLUTE MONOCYTES 0.6 thou/uL (0.0-1.2); ABSOLUTE NEUTROPHILS 6.3 thou/uL (1.6-8.1); BASOPHILS 1.3 %; EOSINOPHILS 1.5 %; HEMATOCRIT 39.8 % (37.0-47.0); HEMOGLOBIN 13.1 gm/dL (12.0-15.0); LYMPHOCYTES 21.5 %; MCH 28.1 pg (26.0-34.0); MCHC 32.9 g/dL (28.0-37.0); MCV 85.3 fL (80.0-100.0); MONOCYTES 6.6 %; MPV 7.2 fl. (7.2-11.1); NUCLEATED RBCS 0 /100WBC; PLATELET COUNT* 312 thou/uL (150-400); POLYS 69.1 %; RBC 4.67 mil/uL (4.20-5.00); RDW-CV 15.6 % (10.5-14.5); WBC 9.1 thou/uL (4.0-11.0)
[2018-01-22 18:51] LABS: CALCIUM 8.7 mg/dL (8.5-10.1); CREATININE 0.8 mg/dL (0.6-1.3)
[2018-01-22 18:52] LABS: POTASSIUM 2.9 mmol/L (3.5-5.1)
[2018-01-22 18:53] LABS: AMP/METHAMP Negative (Negative); BARBITURATES Negative (Negative); BENZODIAZEPINES POSITIVE (Negative); COCAINE Negative (Negative); METHADONE Negative (Negative); OPIATES Negative (Negative); PCP Negative (Negative); THC Negative (Negative)
[2018-01-22 18:56] LABS: ALBUMIN 3.9 g/dL (3.4-5.0); TOTAL BILIRUBIN 0.3 mg/dL (<0.1-1.0); TOTAL PROTEIN 7.9 g/dL (6.4-8.2)
[2018-01-22 20:08] VITALS: BP 167/71
[2018-01-22 20:30] VITALS: BP 125/58
[2018-01-22] MEDS ORDERED: GABAPENTIN 100100 MG PO ×2 (22:55)
[2018-01-23 07:30] VITALS: BP 153/66
[2018-01-23 08:34] LABS: CALCIUM 8.1 mg/dL (8.5-10.1); CREATININE 0.7 mg/dL (0.6-1.3); MAGNESIUM 2.1 mg/dL (1.8-2.4)
[2018-01-23 11:35] VITALS: BP 151/86
--- NOTE | 2018-01-23 14:01 | 2DMMODE ---
[place] [address] 2 D/M-MODE ECHOCARDIOGRAM Name: ARIEL MORAN Room: [address] IN [facility]#: [id number] Admission: 01/22/18 Attend Phys: Fran Vargas, Discharge: Date of : 62 Date of Service: 01/23/18 1400 Report #: [id number] THIS REPORT FOR: //name// APPROVED REPORT Study performed: 01/23/2018 09:31:07 EXAM: Comprehensive 2D, Doppler, and color-flow Echocardiogram Patient Location: In-Patient Room #: 106 Status: routine BSA: 1.92 HR: 80 bpm BP: 153/66 mmHg Rhythm: NSR Other Information Study Quality: Good Indications Abnormal ECG falls, hyponatremia, hypoklalemia 2D Dimensions LVEF(%): 78.86 (>50%) IVSd: 11.42 (7-11mm) LVOT Diam: 18.97 (18-24mm) LVDd: 47.90 mm PWd: 12.09 (7-11mm) Ascending Ao: 34.58 (22-36mm) LVDs: 25.13 (25-40mm) Aortic Root: 29.98 mm Levy's LVEF: 78.86 % Volumes Left Atrial Volume (Systole) LA ESV Index: 23.00 mL/m2 Aortic Valve AoV Peak Theodore.: 1.78 m/s AO Peak Gr.: 12.74 mmHg LVOT Max P.94 mmHg AO Mean Gr.: 5.76 mmHg LVOT Mean P.50 mmHg LVOT Max V: 1.41 m/s AO V2 VTI: 33.07 cm LVOT Mean V: 0.85 m/s PIPE (VTI): 2.73 cm2 LVOT V1 VTI: 31.93 [place] [address] 2 D/M-MODE ECHOCARDIOGRAM Name: ARIEL MORAN Room: [address] IN [facility]#: [id number] Admission: 01/22/18 Attend Phys: Fran Vargas, Discharge: Date of : 62 Date of Service: 01/23/18 1400 Report #: [id number] E/A Ratio: 1.11 MV Decel. Time: 160.21 ms MV E Max Theodore.: 1.18 m/s MV PHT: 46.46 ms MVA (PHT): 4.74 cm2 TDI E/Lateral E': 10.73 E/Medial E': 6.94 Medial E' Theodore.: 0.17 m/s Lateral E' Theodore.: 0.11 m/s Pulmonary Valve PV Peak Theodore.: 1.05 m/s PV Peak Gr.: 4.37 mmHg Tricuspid Valve RAP Estimate: 5.00 mmHg TR Peak Gr.: 37.25 mmHg RVSP: 42.25 mmHg PA Pressure: 42.25 mmHg Left Ventricle The left ventricle is normal size. There is normal LV segmental wall motion. Borderline concentric left ventricular hypertrophy. Left ventricular systolic function is normal. The left ventricular ejection fraction is within the normal range. LVEF is 65%. The left ventricular diastolic function is normal. Right Ventricle The right ventricle is normal size. The right ventricular systolic function is normal. Atria The left atrium size is normal. The right atrium size is normal. Aortic Valve The aortic valve is normal in structure. No aortic regurgitation is present. There is no aortic valvular stenosis. Mitral Valve The mitral valve is normal in structure. Trace mitral regurgitation. No evidence of mitral valve stenosis. Tricuspid Valve The tricuspid valve is normal in structure. Moderate tricuspid regurgitation The RVSP is 35-[place] [address] 2 D/M-MODE ECHOCARDIOGRAM Name: ARIEL MORAN Room: [address] IN [facility]#: [id number] Admission: 01/22/18 Attend Phys: Fran Vargas, Discharge: Date of : 62 Date of Service: 01/23/18 [facility] Report #: [id number] Pulmonic Valve The pulmonary valve is normal in structure. There is no pulmonic valvular regurgitation. Great Vessels The aortic root is normal in size. IVC is normal in size and collapses with >50% inspiration Pericardium There is no pericardial effusion. <Conclusion> Borderline concentric left ventricular hypertrophy. Left ventricular systolic function is normal. The left ventricular ejection fraction is within the normal range. LVEF is 65%. The left ventricular diastolic function is normal. The right ventricle is normal size. The left atrium size is normal. The aortic valve is normal in structure. The mitral valve is normal in structure. Trace mitral regurgitation. The tricuspid valve is normal in structure. Moderate tricuspid regurgitation The RVSP is 35-40 mmHg. IVC is normal in size and collapses with >50% inspiration There is no pericardial effusion. There is normal LV segmental wall motion. The left ventricle is normal size. <ELECTRONICALLY SIGNED> By: Shar Conley MD, FACC 01/23/18 1400 1400 1400 Shar Conley MD, FACC /INF
[2018-01-23 15:42] VITALS: BP 153/73
[2018-01-23 20:00] VITALS: BP 186/93
[2018-01-24] VITALS: BP 146/74
[2018-01-24 04:00] VITALS: BP 180/85
[2018-01-24 05:39] LABS: CALCIUM 8.3 mg/dL (8.5-10.1); CREATININE 0.7 mg/dL (0.6-1.3); POTASSIUM 4.5 mmol/L (3.5-5.1)
[2018-01-24 08:00] VITALS: BP 166/70
--- NOTE | 2018-01-24 09:37 | EKG ---
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 : 1960 Requested By: Katie Ingram Order Number: [id number] MD: Jesse Shafer Measurements Intervals [place] Rate: 71 P: 67 MS: 180 QRS: 54 QRSD: 90 T: -26 QT: 463 QTc: 504 Interpretive Statements Sinus rhythm Probable left atrial enlargement Anteroseptal infarct, age indeterminate Compared to ECG 10/31/2017 13:49:59 Myocardial infarct finding now present Electronically Signed On 01-24-2018 9:36:53 CDT by Jesse Shafer [email or web address] <ELECTRONICALLY SIGNED> By: Jesse Shafer MD, FACC 01/24/18 0936 50 50 Jesse Shafer MD, FAC /EPI
[2018-01-24 11:57] VITALS: BP 178/79
[2018-01-24 14:03] VITALS: BP 178/79
[2018-01-24] MEDS ORDERED: ASPIR 8181 MG PO (14:17)
--- NOTE | 2018-02-02 12:34 | EEG ---
[address] [address] EEG STUDY REPORT Name: ARIEL MORAN Room: [address] IN .R.#: [id number] Admission: 01/22/18 Attend Phys: Fran Vargas MD Discharge: 01/24/18 Date of : 62 Report #: [id number] THIS REPORT FOR: //name// CC: [facility] physician/PCP Fran Vargas DATE OF SERVICE: 01/24/2018 This patient is being evaluated for multiple falls. EEG is done to evaluate the possibility of seizure. The patient's EEG was done by placing the electrodes by standard 10-20 system of electrode placement. Both referential and sequential montages were used for recording. Background activity in this patient's EEG is about 9 Hz and 30 microvolt. The patient went to sleep that is associated with bilaterally symmetrical sleep spindle and vertex sharp waves. Photic stimulation is unremarkable. Throughout the record, no active epileptiform activity was noticed. IMPRESSION: This patient's electroencephalogram is unremarkable. Thank you very much for this referral. <ELECTRONICALLY SIGNED> By: Nish Olivas MD 02/02/18 1234 1312 1324Pyoni Olivas MD /nt
--- NOTE | 2018-02-02 12:34 | CON ---
[address] [address] CONSULTATION Name: ARIEL MORAN Room: [address] IN .R.#: [id number] Admission: 01/22/18 Attend Phys: Fran Vargas MD Discharge: 01/24/18 Date of : 62 Report #: [id number] THIS REPORT FOR: //name// CC: [facility] physician/PCP Fran Vargas DATE OF SERVICE: 01/23/2018 HISTORY OF PRESENT ILLNESS: This is a 57-year-old female patient who was evaluated by me for recurrent fall. I spent a considerable time with this patient, but I am not still able to get a very good history why she falls. She indicates the right leg is giving up and then she indicates the left leg is giving up and at one time, she had a fracture. She indicates she had an MRI of the brain and MRI of the whole spine in [facility]. When I asked her how long this problem is going on, it looks like it is a chronic problem, which is going on for a long time. There is a question of loss of consciousness during this falls in the notes but when I tried to ask her, the history is not very clear. She indicates she has seen a neurologist at [facility] and she received Botox injections for that. REVIEW OF SYSTEMS: A 14-point review of system was carried out. At one time, she had hyponatremia. She has a history of pancreatitis. She has a history of pretty significant psychiatric problem in the past. She in fact indicates she is on disability because of that. She is also on pretty high dose of Topamax. She is on multiple psychotropic medications. She does not know whether she has been diagnosed with postural hypotension or not. She does have a history of elevated LFTs, cystitis, dermatitis and knee pains in the past. This was her relevant 14-point review of system. PAST MEDICAL HISTORY: Positive for significant psychiatric problem. FAMILY HISTORY: Indicates that she does not have any history of early age stroke. SOCIAL HISTORY: She does not drink any alcohol but smoked. PHYSICAL EXAMINATION: NEUROLOGICAL: Exam indicates she is alert. She is responsive. She can follow simple commands. Her speech, concentration, fund of knowledge and memory is at her baseline. Cranial nerve examination 2 through 12 looks mostly unremarkable. Neuromuscular examination is very difficult to carry out because she is complaining of lot of pain on muscle testing and even when I tried to check her muscle strength, she indicated it hurts too much. Her reflexes look symmetrical and I think it is present in the knees, but she would not me check it because she states it hurts. Her position sense is intact. Her tone is symmetrical. There is no cerebellar sign. [place] [address] CONSULTATION Name: ARIEL MORAN Room: [address] IN M.R.#: [id number] Admission: 01/22/18 Attend Phys: Fran Vargas MD Discharge: 01/24/18 Date of : 62 Report #: [id number] examination. GENERAL: She is moderately-built individual who does not have any dysmorphic features of eyes, ears and face. VITAL SIGNS: Her blood pressure is 153/73, respirations 18, pulse is 90 and temperature is 98.4. EXTREMITIES: Pulses are difficult to feel. She has no edema, cyanosis or jaundice. CARDIAC: Examination does not appear to be showing any definite abnormality. LUNGS: No respiratory difficulty was noticed. LABORATORY DATA: Indicate a white count of 9.1. RADIOLOGICAL DATA: She did have a CT scan of the head and C-spine when she was admitted and that did not show any intracranial pathology. She does have a small hematoma. Carotid Doppler is unremarkable. IMPRESSION: It is not clear what the etiology of the patient's symptom is. I asked the nurses to check for postural hypotension. She indicates she had all the workup in [facility] and had MRI of the brain and whole spine. We will see if we can get that workup first and we will see how she does with physical therapy before ordering more workup in this patient. I discussed that aspect with the patient and the patient wants to follow that plan. RECOMMENDATIONS: 1. Get the MRI of the brain and spine from [place]. 2. See how she does with physical therapy. 3. We will check a TSH and vitamin B12. 4. We will order more testing as necessary in this patient after we get her the workup from [place]. Thank you very much for this referral and if you have any question, please feel free to contact me. <ELECTRONICALLY SIGNED> By: Nish Olivas MD 02/02/18 1234 1711 0212Pyoni Olivas MD /nt
[2018-04-02] MEDS ORDERED: LATUDA60 MG PO (05:59)
== END 2018-01-24 15:13 | disposition home or self-care (01) | DRG 92 ==
LOC: M.ERS 18:04 → M.TBA-ER 19:39 → M.ORTHSURG 19:39 → M.2W 01-23 10:14
PROVIDERS: Nurse Practitioner Family; ADMIT Internal Medicine
PROC: 4A00X4Z Measurement of Central Nervous Electrical Activity, External Approach (ICD-10-PCS; principal; 2018-01-22)
DX: G92 Toxic encephalopathy (principal); E87.1 Hypo-osmolality and hyponatremia; I10 Essential (primary) hypertension; E11.9 Type 2 diabetes mellitus without complications; F31.9 Bipolar disorder, unspecified; R26.9 Unspecified abnormalities of gait and mobility; F43.10 Post-traumatic stress disorder, unspecified; M79.7 Fibromyalgia; F41.9 Anxiety disorder, unspecified; G43.909 Migraine, unspecified, not intractable, without status migrainosus; M89.9 Disorder of bone, unspecified; E87.6 Hypokalemia; S00.83XA Contusion of other part of head, initial encounter; W01.198A Fall on same level from slipping, tripping and stumbling with subsequent striking against other object, initial encounter; F17.210 Nicotine dependence, cigarettes, uncomplicated; T42.6X5A Adverse effect of other antiepileptic and sedative-hypnotic drugs, initial encounter; T42.8X5A Adverse effect of antiparkinsonism drugs and other central muscle-tone depressants, initial encounter; Y93.89 Activity, other specified; Y92.090 Kitchen in other non-institutional residence as the place of occurrence of the external cause; Y99.8 Other external cause status; Z87.81 Personal history of (healed) traumatic fracture; Z71.6 Tobacco abuse counseling; Z90.49 Acquired absence of other specified parts of digestive tract; Z90.710 Acquired absence of both cervix and uterus; Z79.84 Long term (current) use of oral hypoglycemic drugs; Z79.899 Other long term (current) drug therapy

== ENCOUNTER 2018-02-09 20:32 | Observation (INO) | payer MEDICAID ==
[~2018-02-09] VITALS: Ht 154.9 cm; Wt 95.8 kg
[~2018-02-09 20:32] MED LIST changes: +ASPIR 8181 MG PO; +JANUVIA100 MG PO; +PROBIOTIC1 EAC2 PO; +VITAMIN D400 UNIT PO
[2018-02-09 20:37] VITALS: BP 149/75
[2018-02-09 20:59] LABS: ABSOLUTE BASOPHILS 0.1 thou/uL (0.0-0.2); ABSOLUTE EOSINOPHILS 0.1 thou/uL (0.0-0.7); ABSOLUTE LYMPHOCYTES 1.5 thou/uL (0.8-5.3); ABSOLUTE MONOCYTES 0.5 thou/uL (0.0-1.2); ABSOLUTE NEUTROPHILS 4.7 thou/uL (1.6-8.1); EOSINOPHILS 1.5 %; HEMATOCRIT 36.6 % (37.0-47.0); HEMOGLOBIN 11.9 gm/dL (12.0-15.0); LYMPHOCYTES 22.1 %; MCHC 32.4 g/dL (28.0-37.0); MCV 86.3 fL (80.0-100.0); MONOCYTES 6.6 %; MPV 7.2 fl. (7.2-11.1); NUCLEATED RBCS 0 /100WBC; PLATELET COUNT* 264 thou/uL (150-400); POLYS 68.8 %; RBC 4.24 mil/uL (4.20-5.00); RDW-CV 15.9 % (10.5-14.5); WBC 6.9 thou/uL (4.0-11.0)
[2018-02-09 21:15] LABS: CALCIUM 8.4 mg/dL (8.5-10.1); CREATININE 0.8 mg/dL (0.6-1.3); POTASSIUM 3.6 mmol/L (3.5-5.1)
[2018-02-09 21:19] LABS: ALBUMIN 3.7 g/dL (3.4-5.0); TOTAL BILIRUBIN 0.3 mg/dL (<0.1-1.0); TOTAL PROTEIN 7.3 g/dL (6.4-8.2)
[2018-02-09 21:46] LABS: URINE BILIRUBIN NEGATIVE (Negative); URINE BLOOD NEGATIVE (Negative); URINE CLARITY CLEAR; URINE COLOR YELLOW; URINE GLUCOSE-RANDOM NEGATIVE (Negative); URINE KETONES NEGATIVE (Negative); URINE LEUKOCYTES-REFLEX TRACE (Negative); URINE NITRITE-REFLEX NEGATIVE (Negative); URINE PROTEIN NEGATIVE (Negative); URINE SPECIFIC GRAVITY <= 1.005 (1.005-1.030); URINE UROBILINOGEN 0.2 E.U./dl (0.2-1.0)
[2018-02-09 21:53] LABS: AMP/METHAMP Negative (Negative); BARBITURATES Negative (Negative); BENZODIAZEPINES POSITIVE (Negative); COCAINE Negative (Negative); METHADONE Negative (Negative); OPIATES Negative (Negative); PCP Negative (Negative); THC Negative (Negative)
[2018-02-09 21:53] LABS: MUCUS None Seen strn/LPF (None Seen); SQUAMOUS >10 Many /LPF (0-3)
[2018-02-09 21:54] LABS: CASTS None Seen /LPF (None Seen); CRYSTALS None Seen /LPF (None Seen); URINE WBC-REFLEX 0-5 Rare /HPF (0-5)
[2018-02-09 21:55] LABS: URINE RBC None Seen /HPF (0-2)
[2018-02-09 23:15] VITALS: BP 149/56
[2018-02-10] VITALS (7 sets, daily range): BP systolic 134–152; BP diastolic 66–84
[2018-02-10] MEDS ORDERED: LISINOPRIL10 MG PO (00:49)
[2018-02-10] MEDS ORDERED: MACROBID 100 M100 M2 PO (03:44)
--- NOTE | 2018-02-10 03:59 | NUR ---
RECEIVED REPORT FROM LUCIO NORRIS AT 2303. PT ARRIVED TO UNIT AT 2315 VIA CART. PT UP STAND BY WITH WALKER. HIGH FALL PRECAUTIONS IN PLACE. 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 PT ORIENTED TO ROOM AND CALL LIGHT. HOURLY ROUNDING COMLETED. CALL LIGHT WITHIN REACH. INITIAL NIH SCORE =0.
[2018-02-10 04:25] LABS: HEMATOCRIT 33.4 % (37.0-47.0); HEMOGLOBIN 10.9 gm/dL (12.0-15.0); MCH 28.2 pg (26.0-34.0); MCHC 32.7 g/dL (28.0-37.0); MPV 7.5 fl. (7.2-11.1); RBC 3.88 mil/uL (4.20-5.00); RDW-CV 16.1 % (10.5-14.5); WBC 5.7 thou/uL (4.0-11.0)
--- NOTE | 2018-02-10 04:31 | NUR ---
PT REFUSED DM CONSULT. STATES SHE FEELS SAFE AT HOME, DOES NOT NEED HELP OR NEED INFORMATION ON COMMUNITY RESOURCES AT THIS TIME.
[2018-02-10 05:20] LABS: ALBUMIN 3.1 g/dL (3.4-5.0); CALCIUM 7.9 mg/dL (8.5-10.1); CREATININE 0.7 mg/dL (0.6-1.3); POTASSIUM 3.5 mmol/L (3.5-5.1); TOTAL BILIRUBIN 0.2 mg/dL (<0.1-1.0)
[2018-02-10] MEDS ORDERED: ZYRTEC10 M5 PO (05:44)
--- NOTE | 2018-02-10 07:45 | NUR ---
ASSUMED CARE OF PT ASSESSED AND DOCUMENTED. PT IS ON CARDIAC MONITER TRACING SR HR 81. PT IS A&O. SHE C/O HEADACHE PAIN AND WAS GIVEN TYLENOL BY PRIOR NURSE. VSS WNL. PT HAS A LOW GRADE TEMP OF 99.3. PT IS ON ROOM AIR. BED IS IN LOW POSITION CALL LIGHT IS IN REACH. WM.
--- NOTE | 2018-02-10 10:45 | EKG ---
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 02/10/18 1045 44 Jesse Shafer MD, [facility] /EPI
--- NOTE | 2018-02-10 12:59 | NUR ---
Nutrition: Consult received for "23# wt loss in 3 mos, poor appetite." Pt was eating lunch during our visit. She stated she has lost 24# in 2 months d/t nausea. She stated she is glad for the wt loss however. Current wt is 211#, pt stated her usual wt is 223#. Per Second Decimal, wt has been 209-214# since 2017. Conflicting statements on wt changes. H/o bipolar, PTSD, HTN, OBE, DM, pancreatitis. Admitted with dysarthria. Pt stated she had ministrokes and an enlarged heart. RX noted. BG 167-105, alb 3.1. She drinks Ensure for BKFST at home instead of meal - RD will order Ensure for her bid, per pt request. Appears no significant wt loss. No nausea today, eating well. Consider low nutrition risk.
--- NOTE | 2018-02-10 14:08 | NUR ---
SW met with pt to complete initial assessment, introduce self, and SW role. Pt alert, oriented, talkative. Pt stated that she is hopeful to be able to dc today because she plans to meet with her psychiatrist in the morning. SW discussed safe dc planning with pt and SW mentioned receiving a consult that pt had expressed she was not comfortable with returning home and may have felt threatened at home. Pt lives with her exhusband and pt has support from sons although pt said her sons have their own struggles. Pt assured SW that although her ex "yells" at her, that he seems depressed, she felt okay now about going home and that her ex wants her to be able to be home. SW mentioned support services through [employer] and pt said that she had been to [facility] before and is aware of her resources. Pt has ryan and grace chan. Pt has hx with OP therapy at [facility].
--- NOTE | 2018-02-10 16:12 | 2DMMODE ---
[place] [address] 2 D/M-MODE ECHOCARDIOGRAM Name: ARIEL MORAN Room: [address] IN [facility]#: [id number] Admission: 02/09/18 Attend Phys: Addison Jasso Discharge: Date of : 62 Date of Service: 02/10/18 1612 Report #: [id number] THIS REPORT FOR: //name// APPROVED REPORT Study performed: 02/10/2018 14:34:55 EXAM: Limited 2D Echocardiogram with Bubble contrast Patient Location: In-Patient Room #: 225 Status: routine BSA: 1.93 HR: 72 bpm BP: 151/83 mmHg Rhythm: NSR Other Information Study Quality: Good Indications Arrhythmia CVA/TIA Echo Enhancing Agent Indication: Rule out Shunt Agent(s) / Amount(s) Used: Agitated Saline 10 cc Left Ventricle The left ventricle is normal size. There is normal left ventricular wall thickness. The left ventricular systolic function is normal. The left ventricular ejection fraction is within the normal range. LVEF is 65-70%. Right Ventricle The right ventricle is normal size. The right ventricular systolic function is normal. Atria The left atrium size is normal. Interatrial septum is intact without evidence of ASD or PFO.Negative bubble study. The right atrium size is normal. Aortic Valve The aortic valve is normal [place] [address] 2 D/M-MODE ECHOCARDIOGRAM Name: ARIEL MORAN Room: [address] IN .R.#: [id number] Admission: 02/09/18 Attend Phys: Addison Jasso Discharge: Date of : 62 Date of Service: 02/10/181611 Report #: [id number] The mitral valve is normal in structure. Tricuspid Valve The tricuspid valve is normal in structure. Pulmonic Valve The pulmonary valve is normal in structure. Great Vessels The aortic root is normal in size. Pericardium There is no pericardial effusion. <Conclusion> Interatrial septum is intact without evidence of ASD or PFO.Negative bubble study. LVEF is 65-70%. <ELECTRONICALLY SIGNED> By: Jesse Shafer MD, FACC 02/10/181611 11 11 Jesse Shafer MD, FACC /INF
--- NOTE | 2018-02-10 17:28 | NUR ---
PT HAS RESTED IN HER ROOM AND WATCHED TV. EX IS AT BEDSIDE. GAVE PT 2ND DOSE OF FENTANL. PT SLURRED WORDS AFTER REC. SHE HAS PASSED ALL NEURO CHECKS. PTS BS WAS 68. PT STATES FENTANL DOES NOT REALLY HELP KNEE PAIN OR HEAD PAIN. EDUCATION GIVEN ON DEMAND. HOURLY ROUNDING COMPLETE. PT STATES SHE HAS LOST WT AFTER BEING SICK.
--- NOTE | 2018-02-10 18:01 | NUR ---
dr iglesias called and mitra d/c pt.
--- NOTE | 2018-02-10 18:03 | NUR ---
called dr andrade to let know about d/c to see if she has any orders. [facility]
--- NOTE | 2018-02-10 18:24 | NUR ---
GABBI GONZALEZ D/C AND DR HAM. EARLE TO D/C.
--- NOTE | 2018-02-10 18:39 | NUR ---
PT D/C'D TO HOME. NOTIFIED DR AMIN OFFICE. NO RET CALL. EDUCATION GIVEN RE FOLLOW-UPS. MEDICATIONS, AND DR ENRIQUEZ. D/C'D IV AND CARDIAC MONITER. ALL BELONGINGS PACKED UP AND LEFT WITH PT ACCOMPANIED BY STAFF AND EX . PT STATED SHE IS GOING TO GET A NEW PCP AT [facility]. SHE ALSO STATES SHE HAS AN APPT TOMORROW WITH HER NEURO DOCTOR.
[2018-02-11 02:12] LABS: GLYCOHEMOGLOBIN (HGB A1C) 5.8 % (4.8-5.6)
--- NOTE | 2018-02-24 09:32 | CON ---
[address] [address] CONSULTATION Name: ARIEL MORAN Room: [address] Shellie Gutierrez#: [id number] Admission: 02/09/18 Attend Phys: Hernán Mckeon Discharge: 02/11/18 Date of : 62 Report #: [id number] THIS REPORT FOR: //name// CC: [facility] physician/PCP Addison Jasso DATE OF SERVICE: 02/10/2018 HISTORY OF PRESENT ILLNESS: This is a 57-year-old female patient who was evaluated by me for what she describes as speech difficulty and dizziness. This patient was seen by me not too long ago and a consultation was dictated at that time. This patient did not want anything to be done last time and she has indicated that the workup has already been done at [facility]. She went home. Now, she indicates that she went on the internet and realized that a spine workup was not done. She also gives a history that she had a moderate amount of speech difficulty and dizziness and went to [facility]. It happened without any trauma and there was no focal paralysis. She was found to have an enlarged heart and on a CT scan, they saw some stroke. She was there for further evaluation at [facility], but that workup has not been completed yet. REVIEW OF SYSTEMS: A 14-point review of systems is carried out and it is summarized in my prior note that she is on multiple psychotropic medications. She indicates she has a longstanding history of headaches. She has a history of pancreatitis, hyponatremia, elevated LFTs, cystitis, dermatitis, knee pain, knee surgery, knee rehabilitation according to the records. She is still complaining of a lot of pain in the knee area, but she indicates she does not have any other new eye, cardiac, respiratory, GI, , constitutional, dermatological, hematological, throat, or allergic symptom associated with present symptomatology. She does have a pretty significant musculoskeletal symptom, especially in the left knee. PAST MEDICAL HISTORY: Positive for psychiatric problem. FAMILY HISTORY: Negative for any early age stroke. SOCIAL HISTORY: She said she does not drink alcohol. PHYSICAL EXAMINATION: Indicate she is a well-built individual who does not have any dysmorphic features of eyes, ears and face. Her vision and hearing looks adequate. Cranial nerve examination 2-12 is unremarkable. Neuromuscular examination is difficult because the patient does not let me touch her knees because she says it hurts. I do not think there is any change there. I could not look at the fundus. There is no meningeal sign. There is no carotid bruit. Cardiac examination is unremarkable. No respiratory [place] [address] CONSULTATION Name: ARIEL MORAN Room: [address] Shellie Gutierrez#: [id number] Admission: 02/09/18 Attend Phys: Hernán Mckeon Discharge: 02/11/18 Date of : 62 Report #: [id number] noticed on either side. Pulses are palpable. She has no edema, cyanosis or jaundice. Her blood pressure is 148/82, respirations 14, pulse of 92, temperature is 99.5. LABORATORY DATA: Her white count is 5.7, hemoglobin is 10.9. Sodium is 139. Her last B12 was normal. She is scheduled for an MRI, but it is not done yet. IMPRESSION: Very difficult to tell on this patient, but I agree that we should exclude the possibility of a stroke as the initial cause of her symptoms. She is complaining of some back pain in the lower back and says she has longstanding ambulation difficulty. I will do an MRI of the lumbar spine since she said she did not have any. We will see what this workup shows, especially what the workup for the stroke shows and then decide about further management. RECOMMENDATIONS: 1. Await MRI of the brain. 2. Await MRI of the spine. 3. This looks like a longstanding problem except the possibility of stroke, which we need to address. If not, then some of the workup may have to be done as an outpatient. Thank you very much for this referral. <ELECTRONICALLY SIGNED> By: Nish Olivas MD 02/24/1832 1 194Nish Olivas MD /nt
[2018-04-02] MEDS ORDERED: LATUDA60 MG PO (05:59)
== END 2018-02-11 02:31 | disposition home or self-care (01) ==
LOC: M.ERS 20:32 → M.2W 22:32 → M.TBA-ER 22:32 → M.2W 22:32
PROVIDERS: Emergency Medicine; Family Medicine; ADMIT Internal Medicine
DX: G93.40 Encephalopathy, unspecified (principal); R42 Dizziness and giddiness; M19.90 Unspecified osteoarthritis, unspecified site; F41.1 Generalized anxiety disorder; R47.81 Slurred speech; M48.061 Spinal stenosis, lumbar region without neurogenic claudication; E66.01 Morbid (severe) obesity due to excess calories; F31.9 Bipolar disorder, unspecified; F41.9 Anxiety disorder, unspecified; E11.8 Type 2 diabetes mellitus with unspecified complications; I10 Essential (primary) hypertension; K21.9 Gastro-esophageal reflux disease without esophagitis; F43.10 Post-traumatic stress disorder, unspecified; E87.1 Hypo-osmolality and hyponatremia; R51 Headache; N39.0 Urinary tract infection, site not specified; F17.210 Nicotine dependence, cigarettes, uncomplicated; G43.909 Migraine, unspecified, not intractable, without status migrainosus; R47.1 Dysarthria and anarthria; R27.0 Ataxia, unspecified; Z90.49 Acquired absence of other specified parts of digestive tract; Z72.89 Other problems related to lifestyle; Z90.710 Acquired absence of both cervix and uterus; Z98.890 Other specified postprocedural states

== ENCOUNTER 2018-02-23 21:36 | Emergency (ER) | payer MEDICAID ==
[~2018-02-23] VITALS: Ht 154.9 cm; Wt 91.2 kg
[~2018-02-23 21:36] MED LIST changes: +LISINOPRIL10 MG PO; +MACROBID 100 M100 M2 PO; +ZYRTEC10 M5 PO
[2018-02-23 22:50] VITALS: BP 148/62
--- NOTE | 2018-02-24 11:43 | EKG ---
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 : 1960 Requested By: Gwendolyn Rojas Order Number: [id number] MD: Jesse Shafer Measurements Intervals [place] Rate: 76 P: 67 MA: 158 QRS: 60 QRSD: 92 T: 12 QT: 433 QTc: 487 Interpretive Statements Sinus rhythm Low voltage, precordial leads Borderline prolonged QT interval Compared to ECG 02/09/2018 20:45:54 Low QRS voltage now present T-wave abnormality no longer present Electronically Signed On 02-24-2018 11:42:50 CDT by Jesse Shafer [email or web address] <ELECTRONICALLY SIGNED> By: Jesse Shafer MD, FACC 02/24/18 1142 2145 2145 Jesse Shafer MD, [facility] /EPI
[2018-04-02] MEDS ORDERED: LATUDA60 MG PO (05:59)
== END 2018-02-23 22:50 | disposition home or self-care (01) ==
LOC: M.ERS 21:36
DX: F41.9 Anxiety disorder, unspecified (principal); M54.9 Dorsalgia, unspecified; R07.9 Chest pain, unspecified; F31.9 Bipolar disorder, unspecified; E11.9 Type 2 diabetes mellitus without complications; M79.7 Fibromyalgia; G43.909 Migraine, unspecified, not intractable, without status migrainosus; Z90.49 Acquired absence of other specified parts of digestive tract; Z90.710 Acquired absence of both cervix and uterus; F17.210 Nicotine dependence, cigarettes, uncomplicated; Z88.5 Allergy status to narcotic agent; Z88.8 Allergy status to other drugs, medicaments and biological substances

== ENCOUNTER 2018-03-11 15:53 | Emergency (ER) | payer MEDICAID ==
[~2018-03-11] VITALS: Ht 154.9 cm; Wt 88.5 kg
[2018-03-11 16:02] VITALS: BP 156/85
--- NOTE | 2018-03-12 11:37 | EKG ---
[place] [address] ELECTROCARDIOGRAM REPORT Name: ARIEL MORAN Room: [facility]#: [id number] Admission: 03/11/18 Attend Phys: Discharge: 03/11/18 Date of : 62 Report #: [id number] THIS REPORT FOR: //name// [facility] ED Test Date: 2018-03-11 Test Time: 15:57:01 Pat Name: ARIEL MORAN Department: Room: Gender: F Rn Pediatric: REX : 1960 Requested By: Kenny Rodriguez Order Number: [id number] MD: Jesse Shafer Measurements Intervals [place] Rate: 78 P: 64 DE: 147 QRS: 61 QRSD: 82 T: 11 QT: 396 QTc: 452 Interpretive Statements Sinus rhythm Probable left atrial enlargement Compared to ECG 02/23/2018 21:45:37 No significant changes Electronically Signed On 03-12-2018 11:36:57 CDT by Jesse Shafer [email or web address] <ELECTRONICALLY SIGNED> By: Jesse Shafer MD, [facility] 03/12/18 1136 1557 1557 Jesse Shafer MD, [facility] /EPI
[2018-04-02] MEDS ORDERED: LATUDA60 MG PO (05:59)
== END 2018-03-11 16:31 | disposition home or self-care (01) ==
LOC: M.ERS 15:53
DX: F41.0 Panic disorder [episodic paroxysmal anxiety] (principal); I10 Essential (primary) hypertension; E11.9 Type 2 diabetes mellitus without complications; M79.7 Fibromyalgia; G43.909 Migraine, unspecified, not intractable, without status migrainosus; F31.9 Bipolar disorder, unspecified; F17.210 Nicotine dependence, cigarettes, uncomplicated; Z88.5 Allergy status to narcotic agent; Z88.6 Allergy status to analgesic agent; Z88.8 Allergy status to other drugs, medicaments and biological substances; Z90.710 Acquired absence of both cervix and uterus; Z90.49 Acquired absence of other specified parts of digestive tract

== ENCOUNTER 2018-03-21 20:50 | Emergency (ER) | payer MEDICAID ==
[~2018-03-21] VITALS: Ht 154.9 cm; Wt 88.9 kg
[2018-03-21] MEDS ORDERED: LYRICA 50 MG50 MG (21:01)
[2018-03-21] MEDS ORDERED: FLEXERIL (21:02)
[2018-03-21] MEDS ORDERED: ACETAMINOPHEN-1 EAC1 PO (22:05)
[2018-03-21 22:28] VITALS: BP 167/85
[2018-04-02] MEDS ORDERED: LATUDA60 MG PO (05:59)
== END 2018-03-21 22:33 | disposition home or self-care (01) ==
LOC: M.ERS 20:50
DX: S16.1XXA Strain of muscle, fascia and tendon at neck level, initial encounter (principal); S70.02XA Contusion of left hip, initial encounter; W19.XXXA Unspecified fall, initial encounter; Y93.89 Activity, other specified; Y92.89 Other specified places as the place of occurrence of the external cause; Y99.8 Other external cause status; F31.9 Bipolar disorder, unspecified; E11.9 Type 2 diabetes mellitus without complications; M79.7 Fibromyalgia; G43.909 Migraine, unspecified, not intractable, without status migrainosus; F41.9 Anxiety disorder, unspecified; Z90.49 Acquired absence of other specified parts of digestive tract; Z90.710 Acquired absence of both cervix and uterus; F17.210 Nicotine dependence, cigarettes, uncomplicated; Z88.5 Allergy status to narcotic agent

== ENCOUNTER 2018-03-29 17:38 | Emergency (ER) | payer MEDICAID ==
[~2018-03-29] VITALS: Ht 152.4 cm; Wt 75.8 kg
[~2018-03-29 17:38] MED LIST changes: +ACETAMINOPHEN-1 EAC1 PO; +FLEXERIL; +LYRICA 50 MG50 MG
[2018-03-29 17:57] VITALS: BP 180/109
[2018-03-29] MEDS ORDERED: KEFLEX500 M1 PO (18:17)
[2018-03-30] MEDS ORDERED: ZOFRAN4 MG PO (23:58)
[2018-03-30] MEDS ORDERED: ACETAMINOPHEN-1 EAC1 PO (23:58)
[2018-03-30] MEDS ORDERED: FLEXERIL PO (23:58)
[2018-04-02] MEDS ORDERED: LATUDA60 MG PO (05:59)
== END 2018-03-29 18:34 | disposition home or self-care (01) ==
LOC: M.ERS 17:38
DX: S80.812A Abrasion, left lower leg, initial encounter (principal); S80.811A Abrasion, right lower leg, initial encounter; F31.9 Bipolar disorder, unspecified; F41.9 Anxiety disorder, unspecified; E11.9 Type 2 diabetes mellitus without complications; M79.7 Fibromyalgia; G43.909 Migraine, unspecified, not intractable, without status migrainosus; I10 Essential (primary) hypertension; F17.210 Nicotine dependence, cigarettes, uncomplicated; Z88.5 Allergy status to narcotic agent; Z88.6 Allergy status to analgesic agent; Z88.8 Allergy status to other drugs, medicaments and biological substances; Z90.710 Acquired absence of both cervix and uterus; Z90.49 Acquired absence of other specified parts of digestive tract; W18.39XA Other fall on same level, initial encounter; Y93.89 Activity, other specified; Y92.89 Other specified places as the place of occurrence of the external cause; Y99.8 Other external cause status

== ENCOUNTER 2018-03-30 23:28 | Emergency (ER) | payer MEDICAID ==
[~2018-03-30] VITALS: Ht 152.4 cm; Wt 88.9 kg
[~2018-03-30 23:28] MED LIST changes: +KEFLEX500 M1 PO
[2018-03-30 23:53] LABS: URINE BILIRUBIN NEGATIVE (Negative); URINE BLOOD NEGATIVE (Negative); URINE CLARITY CLEAR; URINE COLOR YELLOW; URINE GLUCOSE-RANDOM NEGATIVE (Negative); URINE KETONES NEGATIVE (Negative); URINE LEUKOCYTES-REFLEX NEGATIVE (Negative); URINE NITRITE-REFLEX NEGATIVE (Negative); URINE PROTEIN NEGATIVE (Negative); URINE SPECIFIC GRAVITY 1.015 (1.005-1.030); URINE UROBILINOGEN 0.2 E.U./dl (0.2-1.0)
[2018-03-30] MEDS ORDERED: ZOFRAN4 MG PO (23:58)
[2018-03-30] MEDS ORDERED: ACETAMINOPHEN-1 EAC1 PO (23:58)
[2018-03-30] MEDS ORDERED: FLEXERIL PO (23:58)
[2018-03-31 00:13] VITALS: BP 142/103
[2018-04-02] MEDS ORDERED: LATUDA60 MG PO (05:59)
== END 2018-03-31 00:17 | disposition home or self-care (01) ==
LOC: M.ERS 23:28
PROVIDERS: Emergency Medicine
DX: S80.812A Abrasion, left lower leg, initial encounter (principal); S80.811A Abrasion, right lower leg, initial encounter; S60.511A Abrasion of right hand, initial encounter; F17.210 Nicotine dependence, cigarettes, uncomplicated; M79.7 Fibromyalgia; F31.9 Bipolar disorder, unspecified; F41.9 Anxiety disorder, unspecified; E11.9 Type 2 diabetes mellitus without complications; G43.909 Migraine, unspecified, not intractable, without status migrainosus; Z88.8 Allergy status to other drugs, medicaments and biological substances; Z88.6 Allergy status to analgesic agent; Z90.710 Acquired absence of both cervix and uterus; Z90.49 Acquired absence of other specified parts of digestive tract; W18.39XA Other fall on same level, initial encounter; Y92.89 Other specified places as the place of occurrence of the external cause; Y93.89 Activity, other specified; Y99.8 Other external cause status

== ENCOUNTER 2018-04-02 05:24 | Emergency (ER) | payer MEDICAID ==
[~2018-04-02] VITALS: Ht 154.9 cm; Wt 63.5 kg
[~2018-04-02 05:24] MED LIST changes: +FLEXERIL PO; +ZOFRAN4 MG PO
[2018-04-02 05:54] VITALS: BP 155/81
[2018-04-02] MEDS ORDERED: LATUDA60 MG PO ×2 (05:59)
== END 2018-04-02 06:25 | disposition home or self-care (01) ==
LOC: M.ERS 05:24
DX: S60.413A Abrasion of left middle finger, initial encounter (principal); W25.XXXA Contact with sharp glass, initial encounter; Y93.89 Activity, other specified; Y92.89 Other specified places as the place of occurrence of the external cause; Y99.8 Other external cause status; G43.909 Migraine, unspecified, not intractable, without status migrainosus; M79.7 Fibromyalgia; E11.9 Type 2 diabetes mellitus without complications; F31.9 Bipolar disorder, unspecified; F41.9 Anxiety disorder, unspecified; I10 Essential (primary) hypertension; Z90.49 Acquired absence of other specified parts of digestive tract; Z90.710 Acquired absence of both cervix and uterus; F17.210 Nicotine dependence, cigarettes, uncomplicated; Z88.5 Allergy status to narcotic agent; Z88.8 Allergy status to other drugs, medicaments and biological substances

== ENCOUNTER 2018-04-02 10:46 | Emergency (ER) | payer MEDICAID ==
[~2018-04-02] VITALS: Ht 152.4 cm; Wt 90.7 kg
[2018-04-02 10:49] VITALS: BP 166/91
== END 2018-04-02 11:17 | disposition home or self-care (01) ==
LOC: M.ERS 10:46
DX: S90.415A Abrasion, left lesser toe(s), initial encounter (principal); W22.8XXA Striking against or struck by other objects, initial encounter; Y93.89 Activity, other specified; Y92.89 Other specified places as the place of occurrence of the external cause; Y99.8 Other external cause status; F31.9 Bipolar disorder, unspecified; F41.9 Anxiety disorder, unspecified; E11.9 Type 2 diabetes mellitus without complications; M79.7 Fibromyalgia; G43.909 Migraine, unspecified, not intractable, without status migrainosus; Z90.49 Acquired absence of other specified parts of digestive tract; Z90.710 Acquired absence of both cervix and uterus; F17.210 Nicotine dependence, cigarettes, uncomplicated; Z88.5 Allergy status to narcotic agent; Z88.8 Allergy status to other drugs, medicaments and biological substances

== ENCOUNTER 2018-04-05 08:34 | Emergency (ER) | payer MEDICAID ==
[~2018-04-05] VITALS: Ht 154.9 cm; Wt 88.9 kg
[2018-04-05] MEDS ORDERED: XANAX1 MG PO (08:49)
[2018-04-05 09:25] LABS: ABSOLUTE BASOPHILS 0.1 thou/uL (0.0-0.2); ABSOLUTE EOSINOPHILS 0.2 thou/uL (0.0-0.7); ABSOLUTE LYMPHOCYTES 1.4 thou/uL (0.8-5.3); ABSOLUTE MONOCYTES 0.4 thou/uL (0.0-1.2); ABSOLUTE NEUTROPHILS 5.8 thou/uL (1.6-8.1); BASOPHILS 0.8 %; HEMATOCRIT 38.3 % (37.0-47.0); HEMOGLOBIN 12.4 gm/dL (12.0-15.0); LYMPHOCYTES 17.4 %; MCH 28.7 pg (26.0-34.0); MCHC 32.5 g/dL (28.0-37.0); MCV 88.5 fL (80.0-100.0); MONOCYTES 5.4 %; MPV 7.3 fl. (7.2-11.1); NUCLEATED RBCS 0 /100WBC; PLATELET COUNT* 309 thou/uL (150-400); POLYS 74.4 %; RBC 4.32 mil/uL (4.20-5.00); RDW-CV 15.9 % (10.5-14.5); WBC 7.8 thou/uL (4.0-11.0)
[2018-04-05 09:27] LABS: URINE BILIRUBIN NEGATIVE (Negative); URINE BLOOD TRACE (Negative); URINE CLARITY CLEAR; URINE COLOR YELLOW; URINE GLUCOSE-RANDOM NEGATIVE (Negative); URINE KETONES NEGATIVE (Negative); URINE LEUKOCYTES-REFLEX TRACE (Negative); URINE NITRITE-REFLEX NEGATIVE (Negative); URINE PROTEIN NEGATIVE (Negative); URINE SPECIFIC GRAVITY <= 1.005 (1.005-1.030); URINE UROBILINOGEN 0.2 E.U./dl (0.2-1.0)
[2018-04-05 09:32] LABS: AMP/METHAMP Negative (Negative); BARBITURATES Negative (Negative); BENZODIAZEPINES Negative (Negative); COCAINE Negative (Negative); METHADONE Negative (Negative); OPIATES POSITIVE (Negative); PCP Negative (Negative); THC Negative (Negative)
[2018-04-05 09:35] LABS: ANION GAP 9 mmol/L (7-16); BUN 5 mg/dL (7-18); CHLORIDE 102 mmol/L (98-107); CO2 26 mmol/L (21-32); CREATININE 0.7 mg/dL (0.6-1.3); GLUCOSE 134 mg/dL (70-99); SODIUM 137 mmol/L (136-145)
[2018-04-05 09:40] LABS: SQUAMOUS 4-10 Moderate /LPF (0-3); URINE WBC-REFLEX None Seen /HPF (0-5)
[2018-04-05 09:41] LABS: BACTERIA-REFLEX None Seen /HPF (None Seen); CASTS None Seen /LPF (None Seen); CRYSTALS None Seen /LPF (None Seen); MUCUS None Seen strn/LPF (None Seen); URINE RBC 3-10 Few /HPF (0-2)
[2018-04-05 09:42] LABS: ALBUMIN 3.7 g/dL (3.4-5.0); ALKALINE PHOSPHATASE 269 U/L (46-116); SGOT 53 U/L (15-37); SGPT 55 U/L (30-65); TOTAL BILIRUBIN 0.4 mg/dL (<0.1-1.0); TOTAL PROTEIN 7.7 g/dL (6.4-8.2); TROPONIN-I LEVEL <0.06 ng/mL (<0.06)
[2018-04-05 10:32] LABS: ALCOHOL < 10 mg/dL (<10); SALICYLATE 5.7 mg/dL (2.8-20.0)
[2018-04-05 10:36] LABS: ACETAMINOPHEN < 2 ug/mL (10-30)
[2018-04-05 11:55] VITALS: BP 177/72
== END 2018-04-05 11:56 | disposition home or self-care (01) ==
LOC: M.ERS 08:34
PROVIDERS: Emergency Medicine
DX: F31.9 Bipolar disorder, unspecified (principal); F41.9 Anxiety disorder, unspecified; I10 Essential (primary) hypertension; E11.9 Type 2 diabetes mellitus without complications; M79.7 Fibromyalgia; G43.909 Migraine, unspecified, not intractable, without status migrainosus; Z90.49 Acquired absence of other specified parts of digestive tract; Z90.710 Acquired absence of both cervix and uterus; F17.210 Nicotine dependence, cigarettes, uncomplicated; Z88.5 Allergy status to narcotic agent; Z88.8 Allergy status to other drugs, medicaments and biological substances

== ENCOUNTER 2018-04-07 02:12 | Emergency (ER) | payer MEDICAID ==
[~2018-04-07] VITALS: Ht 154.9 cm; Wt 88.0 kg
[2018-04-07 02:26] VITALS: BP 166/86
[2018-04-07] MEDS ORDERED: AMOXICILLIN 50500 MG (02:28)
[2018-04-07] MEDS ORDERED: KEFLEX500 M1 (02:29)
[2018-04-07] MEDS ORDERED: TRAMADOL 50 MG50 MG (02:29)
== END 2018-04-07 02:51 | disposition home or self-care (01) ==
LOC: M.ERS 02:12
DX: S09.90XA Unspecified injury of head, initial encounter (principal); F17.210 Nicotine dependence, cigarettes, uncomplicated; Z88.8 Allergy status to other drugs, medicaments and biological substances; Z90.710 Acquired absence of both cervix and uterus; Z90.49 Acquired absence of other specified parts of digestive tract; M19.90 Unspecified osteoarthritis, unspecified site; F31.9 Bipolar disorder, unspecified; F41.9 Anxiety disorder, unspecified; I10 Essential (primary) hypertension; E11.9 Type 2 diabetes mellitus without complications; M79.7 Fibromyalgia; G43.909 Migraine, unspecified, not intractable, without status migrainosus; W22.8XXA Striking against or struck by other objects, initial encounter; Y92.89 Other specified places as the place of occurrence of the external cause; Y93.89 Activity, other specified; Y99.8 Other external cause status

== ENCOUNTER 2018-04-11 19:20 | Emergency (ER) | payer MEDICAID ==
[~2018-04-11] VITALS: Ht 154.9 cm; Wt 72.6 kg
[~2018-04-11 19:20] MED LIST changes: +AMOXICILLIN 50500 MG; +KEFLEX500 M1; +TRAMADOL 50 MG50 MG
[2018-04-11 19:54] LABS: URINE BILIRUBIN NEGATIVE (Negative); URINE BLOOD NEGATIVE (Negative); URINE CLARITY CLEAR; URINE COLOR YELLOW; URINE GLUCOSE-RANDOM NEGATIVE (Negative); URINE KETONES NEGATIVE (Negative); URINE LEUKOCYTES-REFLEX NEGATIVE (Negative); URINE NITRITE-REFLEX NEGATIVE (Negative); URINE PROTEIN NEGATIVE (Negative); URINE UROBILINOGEN 0.2 E.U./dl (0.2-1.0)
[2018-04-11] MEDS ORDERED: DOXYCYCLINE 10100 MG (20:17)
[2018-04-11 20:40] VITALS: BP 119/98
== END 2018-04-11 20:40 | disposition home or self-care (01) ==
LOC: M.ERS 19:20
PROVIDERS: Personal Emergency Response Attendant
DX: G89.29 Other chronic pain (principal); M54.5 Low back pain; M79.7 Fibromyalgia; F31.9 Bipolar disorder, unspecified; F41.9 Anxiety disorder, unspecified; I10 Essential (primary) hypertension; E11.9 Type 2 diabetes mellitus without complications; G43.909 Migraine, unspecified, not intractable, without status migrainosus; F17.210 Nicotine dependence, cigarettes, uncomplicated; Z90.710 Acquired absence of both cervix and uterus; Z90.49 Acquired absence of other specified parts of digestive tract; Z88.5 Allergy status to narcotic agent; Z88.8 Allergy status to other drugs, medicaments and biological substances

== ENCOUNTER 2018-04-23 08:07 | Emergency (ER) | payer MEDICAID ==
[~2018-04-23] VITALS: Ht 154.9 cm; Wt 86.2 kg
[~2018-04-23 08:07] MED LIST changes: +DOXYCYCLINE 10100 MG
[2018-04-23 08:42] LABS: ABSOLUTE BASOPHILS 0.1 thou/uL (0.0-0.2); ABSOLUTE EOSINOPHILS 0.3 thou/uL (0.0-0.7); ABSOLUTE LYMPHOCYTES 1.2 thou/uL (0.8-5.3); ABSOLUTE MONOCYTES 0.5 thou/uL (0.0-1.2); ABSOLUTE NEUTROPHILS 5.5 thou/uL (1.6-8.1); BASOPHILS 1.1 %; HEMATOCRIT 39.2 % (37.0-47.0); HEMOGLOBIN 12.8 gm/dL (12.0-15.0); LYMPHOCYTES 16.4 %; MCH 29.2 pg (26.0-34.0); MCHC 32.7 g/dL (28.0-37.0); MCV 89.3 fL (80.0-100.0); MONOCYTES 6.2 %; MPV 8.5 fl. (7.2-11.1); NUCLEATED RBCS 0 /100WBC; PLATELET COUNT* 205 thou/uL (150-400); POLYS 72.3 %; RBC 4.39 mil/uL (4.20-5.00); RDW-CV 14.7 % (10.5-14.5); WBC 7.6 thou/uL (4.0-11.0)
[2018-04-23 08:53] LABS: CREATININE 0.7 mg/dL (0.6-1.3); POTASSIUM 3.6 mmol/L (3.5-5.1)
[2018-04-23 09:11] LABS: ALBUMIN 3.6 g/dL (3.4-5.0); TOTAL BILIRUBIN 0.3 mg/dL (<0.1-1.0); TOTAL PROTEIN 7.1 g/dL (6.4-8.2)
[2018-04-23 09:38] LABS: URINE BILIRUBIN NEGATIVE (Negative); URINE BLOOD NEGATIVE (Negative); URINE CLARITY CLEAR; URINE COLOR YELLOW; URINE GLUCOSE-RANDOM NEGATIVE (Negative); URINE KETONES NEGATIVE (Negative); URINE LEUKOCYTES-REFLEX NEGATIVE (Negative); URINE NITRITE-REFLEX NEGATIVE (Negative); URINE PROTEIN NEGATIVE (Negative); URINE SPECIFIC GRAVITY <= 1.005 (1.005-1.030); URINE UROBILINOGEN 0.2 E.U./dl (0.2-1.0)
[2018-04-23 10:35] VITALS: BP 141/80
--- NOTE | 2018-04-24 11:38 | EKG ---
[place] [address] ELECTROCARDIOGRAM REPORT Name: ARIEL MORAN Room: 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 : 1960 Requested By: Marisa Velazco Order Number: [id number] MD: Hernando Valentine Measurements Intervals [place] Rate: 70 P: 78 [place]: 152 QRS: 52 QRSD: 82 T: -2 QT: 418 QTc: 452 Interpretive Statements Sinus rhythm Left atrial enlargement Borderline T abnormalities, anterior leads Compared to ECG 03/11/2018 15:57:01 T-wave abnormality now present Electronically Signed On 04-24-2018 11:38:04 [employer]IT[employer] EDITOR by Hernando Valentine [email or web address] <ELECTRONICALLY SIGNED> By: Hernando Valentine MD, [facility] 04/24/18 1138 0833 0833 Hernando Valentine MD, [facility] /EPI
== END 2018-04-23 10:35 | disposition home or self-care (01) ==
LOC: M.ERS 08:07
PROVIDERS: Personal Emergency Response Attendant
DX: K29.70 Gastritis, unspecified, without bleeding (principal); F31.9 Bipolar disorder, unspecified; F41.9 Anxiety disorder, unspecified; I10 Essential (primary) hypertension; E11.9 Type 2 diabetes mellitus without complications; M79.7 Fibromyalgia; G43.909 Migraine, unspecified, not intractable, without status migrainosus; F17.210 Nicotine dependence, cigarettes, uncomplicated; Z88.5 Allergy status to narcotic agent; Z88.8 Allergy status to other drugs, medicaments and biological substances; Z90.710 Acquired absence of both cervix and uterus; Z90.49 Acquired absence of other specified parts of digestive tract

== ENCOUNTER 2018-05-17 12:25 | Emergency (ER) | payer MEDICAID ==
[~2018-05-17] VITALS: Ht 154.9 cm; Wt 84.4 kg
[2018-05-17] MEDS ORDERED: LITHIUM CARBON300 M7 PO (12:35)
[2018-05-17 13:21] LABS: ABSOLUTE EOSINOPHILS 0.2 thou/uL (0.0-0.7); ABSOLUTE LYMPHOCYTES 1.8 thou/uL (0.8-5.3); ABSOLUTE MONOCYTES 0.4 thou/uL (0.0-1.2); ABSOLUTE NEUTROPHILS 5.4 thou/uL (1.6-8.1); BASOPHILS 0.4 %; EOSINOPHILS 2.4 %; HEMATOCRIT 37.1 % (37.0-47.0); HEMOGLOBIN 12.3 gm/dL (12.0-15.0); LYMPHOCYTES 23.6 %; MCH 29.7 pg (26.0-34.0); MCHC 33.3 g/dL (28.0-37.0); MCV 89.2 fL (80.0-100.0); MONOCYTES 4.7 %; MPV 7.6 fl. (7.2-11.1); NUCLEATED RBCS 0 /100WBC; PLATELET COUNT* 268 thou/uL (150-400); POLYS 68.9 %; RBC 4.16 mil/uL (4.20-5.00); WBC 7.8 thou/uL (4.0-11.0)
[2018-05-17 13:31] LABS: ANION GAP 7 mmol/L (7-16); BUN 7 mg/dL (7-18); CALCIUM 8.8 mg/dL (8.5-10.1); CHLORIDE 103 mmol/L (98-107); CO2 30 mmol/L (21-32); CREATININE 0.7 mg/dL (0.6-1.3); GLUCOSE 118 mg/dL (70-99); POTASSIUM 4.1 mmol/L (3.5-5.1); SODIUM 140 mmol/L (136-145)
[2018-05-17 13:47] LABS: APTT 25.7 Seconds (25.0-31.3); INR 1.1; PROTIME 10.9 Seconds (9.20-11.50)
[2018-05-17 13:52] LABS: ALBUMIN 3.5 g/dL (3.4-5.0); ALKALINE PHOSPHATASE 232 U/L (46-116); CK-MB MASS 4.1 ng/mL (<0.5-3.6); LIPASE 148 U/L (73-393); MAGNESIUM 2.1 mg/dL (1.8-2.4); NT-PRO BRAIN NAT PEPTIDE 143 pg/mL (<300); SGOT 25 U/L (15-37); SGPT 42 U/L (30-65); TOTAL BILIRUBIN 0.3 mg/dL (<0.1-1.0); TOTAL PROTEIN 7.3 g/dL (6.4-8.2); TROPONIN-I LEVEL <0.06 ng/mL (<0.06)
[2018-05-17] MEDS ORDERED: XANAX 0.25 MG0.25 MG PO (15:08)
[2018-05-17 15:55] VITALS: BP 153/98
--- NOTE | 2018-05-17 18:43 | EKG ---
[place] [address] ELECTROCARDIOGRAM REPORT Name: ARIEL MORAN Room: [facility]#: [id number] Admission: 05/17/18 Attend Phys: Discharge: 05/17/18 Date of : 62 Report #: [id number] THIS REPORT FOR: //name// [facility] ED Test Date: 2018-05-17 Test Time: 12:30:19 Pat Name: ARIEL MORAN Department: Room: Gender: F Expressive Art Therapist: Hernán HUNG : 1960 Requested By: Abdulaziz Reyna Order Number: [id number] MD: Hernando Valentine Measurements Intervals [place] Rate: 72 P: 80 MA: 146 QRS: 65 QRSD: 82 T: -18 QT: 411 QTc: 450 Interpretive Statements Sinus rhythm with pac Probable left atrial enlargement Probable septal infarct, old nonspecific t wave changes Compared to ECG 04/23/2018 08:33:57 pac present Electronically Signed On 05-17-2018 18:42:43 KETTLE OPERATOR by Hernando Valentine [email or web address] <ELECTRONICALLY SIGNED> By: Hernando Valentine MD, [facility] 05/17/18 1842 1230 1230 Hernando Valentine MD, [facility] /EPI
== END 2018-05-17 15:57 | disposition home or self-care (01) ==
LOC: M.ERS 12:25
PROVIDERS: Emergency Medicine
DX: F41.9 Anxiety disorder, unspecified (principal); R07.89 Other chest pain; F17.210 Nicotine dependence, cigarettes, uncomplicated; M51.36 Other intervertebral disc degeneration, lumbar region; F31.9 Bipolar disorder, unspecified; I10 Essential (primary) hypertension; E11.9 Type 2 diabetes mellitus without complications; M79.7 Fibromyalgia; G43.909 Migraine, unspecified, not intractable, without status migrainosus; Z88.8 Allergy status to other drugs, medicaments and biological substances; Z90.710 Acquired absence of both cervix and uterus; Z90.49 Acquired absence of other specified parts of digestive tract

== ENCOUNTER 2018-05-21 12:23 | Emergency (ER) | payer MEDICAID ==
[~2018-05-21] VITALS: Ht 149.9 cm; Wt 65.8 kg
[~2018-05-21 12:23] MED LIST changes: +LITHIUM CARBON300 M7 PO; +XANAX 0.25 MG0.25 MG PO
[2018-05-21] MEDS ORDERED: LISINOPRIL10 MG PO (12:38)
[2018-05-21 12:52] VITALS: BP 139/75
== END 2018-05-21 12:59 | disposition home or self-care (01) ==
LOC: M.ERS 12:23
DX: S80.02XA Contusion of left knee, initial encounter (principal); G43.909 Migraine, unspecified, not intractable, without status migrainosus; M79.7 Fibromyalgia; E11.9 Type 2 diabetes mellitus without complications; F41.9 Anxiety disorder, unspecified; F31.9 Bipolar disorder, unspecified; I10 Essential (primary) hypertension; Z90.49 Acquired absence of other specified parts of digestive tract; Z90.710 Acquired absence of both cervix and uterus; F17.210 Nicotine dependence, cigarettes, uncomplicated; Z88.5 Allergy status to narcotic agent; Z88.8 Allergy status to other drugs, medicaments and biological substances; W19.XXXA Unspecified fall, initial encounter; Y93.89 Activity, other specified; Y92.89 Other specified places as the place of occurrence of the external cause; Y99.8 Other external cause status